=== PATIENT | male | born 1950 | race Caucasian/White ===

== ENCOUNTER 2023-02-21 14:05 | Emergency (ER) | payer MEDICARE, SELFPAY ==
[2023-02-21] VITALS (17 sets, daily range): BP systolic 111–159; BP diastolic 69–103; PULSE 51–67; RESP 19–39; TEMP 37.1; O2SAT 93–98; BMI 25.8
--- NOTE | 2023-02-21 14:30 | DI.RAD.S_ITS ---
PROCEDURE: XR CHEST 1V INDICATIONS: chest pain TECHNIQUE: One view of the chest was acquired. COMPARISON: [facility], CR, XR CHEST 1 VIEW, 06/08/2021, 13:16. FINDINGS: Surgical changes and devices: None. Lungs and pleura: Lungs are clear. No pleural effusions or pneumothorax. Mediastinum: Mediastinal contours appear normal. Heart size is normal. Bones and chest wall: No suspicious bony lesions. Overlying soft tissues appear unremarkable. IMPRESSION: No acute pulmonary process. Dictated by: Milli Ahuja M.D. on 02/21/2023 at 15:27 Approved by: Milli Ahuja M.D. on 02/21/2023 at 15:28
[2023-02-21 14:39] LABS: Add Manual Diff / Slide Review NO; Basophils Absolute Auto 0 /uL (0-100); Basophils Percent Auto 0.1 % (0-2); Eosinophils Absolute Auto 100 /uL (0-450); Eosinophils Percent Auto 0.7 % (2-4); Hematocrit 42.5 % (41-53); Hemoglobin 14.5 g/dL (13.5-17.5); Lymphocytes Absolute Auto 1700 /uL (1100-4500); Lymphocytes Percent Auto 19.7 % (25-40); Mean Corpuscular HGB Conc 34.2 % (30-36); Mean Corpuscular Volume 84.7 fL (80-100); Monocytes Absolute Auto 700 /uL (0-900); Monocytes Percent Auto 8.2 % (3-14); Neutrophils Absolute Auto 6000 /uL (1500-7000); Neutrophils Percent Auto 71.3 % (50-75); Platelet Count 181 X10^3/uL (150-400); Red Blood Cell Count 5.02 X10^6/uL (4.5-5.9); Red Cell Distribution Width 15.8 % (11.6-14.8); White Blood Cell Count 8.4 X10^3/uL (4.5-11.0)
[2023-02-21 14:53] LABS: INR 1.5 (0.9-1.3); Prothrombin Time 17.3 SECONDS (10.1-12.7)
[2023-02-21 14:56] LABS: PTT Partial Thromboplastin Tim 35 SECONDS (26-36)
[2023-02-21 14:58] LABS: Alanine Aminotransferase 19 IU/L (<50); Albumin 3.6 g/dL (3.5-5.0); Albumin Globulin Ratio 1.3 (1.0-2.8); Alkaline Phosphatase 87 U/L (38-126); Aspartate Aminotransferase 18 IU/L (17-59); BUN Creatinine Ratio 14.1 (6-22); Bilirubin Total 0.9 mg/dL (0.2-1.3); Blood Urea Nitrogen 11 mg/dL (9-20); Calcium 9.6 mg/dL (8.4-10.2); Carbon Dioxide 26 mmol/L (22-32); Chloride 99 mmol/L (98-107); Creatine Kinase 37 U/L (55-170); Estimated Glomerular Filt Rate > 60 mL/min (>60); Globulin 2.7 g/dL (1.7-4.1); Glucose 154 mg/dL (80-110); HEMOLYSIS < 15 (0-50); Lipase 48 U/L (23-300); Magnesium 1.5 mg/dL (1.6-2.3); Potassium 4.2 mmol/L (3.4-5.1); Sodium 132 mmol/L (137-145); Total Protein 6.3 g/dL (6.3-8.2)
[2023-02-21 15:09] LABS: Troponin I < 0.012 ng/mL (0.01-0.034)
--- NOTE | 2023-02-21 18:06 | ED.SYNCOPE ---
HPI - Syncope General Chief Complaint: Syncope Stated Complaint: Near Syncope Time Seen by Provider: 02/21/23 17:56 Source: patient and EMS Mode of arrival: EMS Limitations: no limitations History of Present Illness HPI narrative: Patient 72-year-old male history of coronary artery disease multiple stents, indwelling Ferguson catheter for BPH presenting today with thought of impending doom. Sounds as though he worries about his health regularly. He woke up and normal state of affairs this morning has been doing well got up from his chair went to the kitchen felt like he might pass out but did not pass out. He says that maybe it was an anxiety attack although he is never had an anxiety attack before. No chest pain shortness of breath abdominal pain nausea or vomiting. Overall feeling better after being in the emergency department for 4-1/2 hours. According to daughter EMS reports low-grade fever. He reports chronic ongoing right leg pain which is not new. Related Data Previous Rx's Medication Instructions Recorded cephalexin 500 mg capsule 500 mg PO BID 7 days #14 caps 02/21/23 Review of Systems Review of Systems ROS Unobtainable: All systems reviewed & are unremarkable except as noted in HPI and below Patient History Social History Smoking Status: Current every day smoker Smoking Status: Current every day smoker tobacco type: cigarettes alcohol intake frequency: 0-2 drinks per day Substance Use Type: does not use Exam Initial Vital Signs Initial Vital Signs: Vital Signs Temperature 98.8 F 02/21/23 14:13 Pulse Rate 64 02/21/23 14:13 Respiratory Rate 20 02/21/23 14:13 Blood Pressure 159/82 H 02/21/23 14:13 Pulse Oximetry 97 02/21/23 14:13 Oxygen Delivery Method Room Air 02/21/23 14:13 GENERAL: Well-appearing 72-year-old male HEENT: Head atraumatic,EOMI, pupils reactive, face symmetric, moist mucous membranes CARDIOVASCULAR: Regular rate and rhythm without murmurs, rubs or gallops. RESPIRATORY: Breath sounds equal bilaterally, no wheezes rales or rhonchi. ABDOMEN: Soft, nontender. Normoactive bowel sounds all 4 quadrants. No guarding or rebound. : Ferguson catheter in place EXTREMITIES: Normal range of motion, no clubbing or edema. Neurovascularly intact NEUROLOGICAL: Alert and oriented x4. SKIN: Warm, dry, no laceration, no petechiae, no rashes or lesions. Course Orders Ordered: ED Orders 02/21/23 19:24 UA Complete [Urinalysis and Microscopic] Stat Urine Culture Stat Discontinued Medications Aspirin (Aspirin 81 Mg Chew Tab) 324 mg PO NOW ONE Stop: 02/21/23 14:31 Cefazolin Sodium (Cephalexin 250 Mg Cap Prepack) 1 bottle MISC SEEINSTR ONE Stop: 02/21/23 20:02 Last Admin: 02/21/23 20:08 Dose: 2 cap Documented By: MARIE Vital Signs Vital signs: Vital Signs - 8 hr 02/21/23 14:13 02/21/23 14:56 02/21/23 14:57 Temperature 98.8 F Pulse Rate 64 61 Respiratory Rate 20 21 Blood Pressure 159/82 H 115/72 Pulse Oximetry 97 95 Oxygen Delivery Method Room Air 02/21/23 14:57 02/21/23 15:00 02/21/23 15:00 Temperature Pulse Rate 61 59 L Respiratory Rate 22 23 Blood Pressure 153/103 H Pulse Oximetry 94 94 Oxygen Delivery Method 02/21/23 15:30 02/21/23 15:30 02/21/23 16:00 Temperature Pulse Rate 59 L 54 L Respiratory Rate 23 19 Blood Pressure 140/80 Pulse Oximetry 95 95 Oxygen Delivery Method 02/21/23 16:01 02/21/23 16:01 02/21/23 16:30 Temperature Pulse Rate 52 L Respiratory Rate 19 Blood Pressure 129/72 115/79 Pulse Oximetry 94 Oxygen Delivery Method 02/21/23 16:30 Temperature Pulse Rate 59 L Respiratory Rate 20 Blood Pressure Pulse Oximetry 96 Oxygen Delivery Method MDM - Syncope Lab Data 02/21/23 14:26 02/21/23 14:26 Labs: Lab Results 02/21/23 02/21/23 02/21/23 Range/Units 14:26 14:26 14:26 WBC 8.4 (4.5-11.0) X10^3/uL RBC 5.02 (4.5-5.9) X10^6/uL Hgb 14.5 (13.5-17.5) g/dL Hct 42.5 (41-53) % MCV 84.7 (80-100) fL MCH 29.0 (26-34) PG MCHC 34.2 (30-36) % RDW 15.8 H (11.6-14.8) % Plt Count 181 (150-400) X10^3/uL Neut % (Auto) 71.3 (50-75) % Lymph % (Auto) 19.7 L (25-40) % [place] % (Auto) 8.2 (3-14) % Eos % (Auto) 0.7 L (2-4) % Baso % (Auto) 0.1 (0-2) % Neut # (Auto) 6000 (3473-5939) /uL Lymph # (Auto) 1700 (2922-6396) /uL [place] # (Auto) 700 (0-900) /uL Eos # (Auto) 100 (0-450) /uL Baso # (Auto) 0 (0-100) /uL PT 17.3 H (10.1-12.7) SECONDS INR 1.5 H (0.9-1.3) APTT 35 (26-36) SECONDS Sodium 132 L (137-145) mmol/L Potassium 4.2 (3.4-5.1) mmol/L Chloride 99 (98-107) mmol/L Carbon Dioxide 26 (22-32) mmol/L BUN 11 (9-20) mg/dL Creatinine 0.78 (0.66-1.25) mg/dL Estimated GFR > 60 (>60) mL/min BUN/Creatinine Ratio 14.1 (6-22) Glucose 154 H (80-110) mg/dL Calcium 9.6 (8.4-10.2) mg/dL Magnesium 1.5 L (1.6-2.3) mg/dL Total Bilirubin 0.9 (0.2-1.3) mg/dL AST 18 (17-59) IU/L ALT 19 (<50) IU/L Alkaline Phosphatase 87 (38-126) U/L Total Creatine Kinase 37 L (55-170) U/L CK-MB (CK-2) TNP CK-MB (CK-2) Rel Index TNP Troponin I < 0.012 (0.01-0.034) ng/mL Total Protein 6.3 (6.3-8.2) g/dL Albumin 3.6 (3.5-5.0) g/dL Globulin 2.7 (1.7-4.1) g/dL Albumin/Globulin Ratio 1.3 (1.0-2.8) Lipase 48 (23-300) U/L Urine Color Urine Appearance Urine pH (4.5-8.0) Ur Specific [place] (1.000-1.035) Urine Protein (Negative) Urine Glucose (UA) (Negative) g/dL Urine Ketones (NEGATIVE) Urine Occult Blood (Negative) Urine Nitrate (Negative) Urine Bilirubin (NEGATIVE) Urine Urobilinogen (0.2) E.U./dL Ur Leukocyte Esterase (NEGATIVE) Urine RBC (0-5/HPF) Urine WBC (0-5/HPF) Urine Bacteria (None) Ur Culture Indicated? 02/21/23 02/21/23 Range/Units 18:45 19:24 WBC (4.5-11.0) X10^3/uL RBC (4.5-5.9) X10^6/uL Hgb (13.5-17.5) g/dL Hct (41-53) % MCV (80-100) fL MCH (26-34) PG MCHC (30-36) % RDW (11.6-14.8) % Plt Count (150-400) X10^3/uL Neut % (Auto) (50-75) % Lymph % (Auto) (25-40) % [place] % (Auto) (3-14) % Eos % (Auto) (2-4) % Baso % (Auto) (0-2) % Neut # (Auto) (6826-3457) /uL Lymph # (Auto) (1037-4409) /uL [place] # (Auto) (0-900) /uL Eos # (Auto) (0-450) /uL Baso # (Auto) (0-100) /uL PT (10.1-12.7) SECONDS INR (0.9-1.3) APTT (26-36) SECONDS Sodium (137-145) mmol/L Potassium (3.4-5.1) mmol/L Chloride (98-107) mmol/L Carbon Dioxide (22-32) mmol/L BUN (9-20) mg/dL Creatinine (0.66-1.25) mg/dL Estimated GFR (>60) mL/min BUN/Creatinine Ratio (6-22) Glucose (80-110) mg/dL Calcium (8.4-10.2) mg/dL Magnesium (1.6-2.3) mg/dL Total Bilirubin (0.2-1.3) mg/dL AST (17-59) IU/L ALT (<50) IU/L Alkaline Phosphatase (38-126) U/L Total Creatine Kinase (55-170) U/L CK-MB (CK-2) CK-MB (CK-2) Rel Index Troponin I < 0.012 (0.01-0.034) ng/mL Total Protein (6.3-8.2) g/dL Albumin (3.5-5.0) g/dL Globulin (1.7-4.1) g/dL Albumin/Globulin Ratio (1.0-2.8) Lipase (23-300) U/L Urine Color Yellow Urine Appearance Sl cloudy Urine pH 7.0 (4.5-8.0) Ur Specific Seth 1.010 (1.000-1.035) Urine Protein Negative (Negative) Urine Glucose (UA) Negative (Negative) g/dL Urine Ketones Negative (NEGATIVE) Urine Occult Blood Trace-intact (Negative) Urine Nitrate Positive H (Negative) Urine Bilirubin Negative (NEGATIVE) Urine Urobilinogen 1.0 (0.2) E.U./dL Ur Leukocyte Esterase 3+ H (NEGATIVE) Urine RBC 0-1/hpf (0-5/HPF) Urine WBC 10-30/hpf H (0-5/HPF) Urine Bacteria Many (>30) H (None) Ur Culture Indicated? Specimen cultured Imaging Data Chest x-ray: Radiologist's Impression: PROCEDURE:? XR CHEST 1V ? INDICATIONS:? chest pain ? TECHNIQUE:? One view of the chest was acquired.? ? COMPARISON:? [facility], CR, XR CHEST 1 VIEW, 06/08/2021, 13:16. ? FINDINGS:? ? Surgical changes and devices:? None.? ? Lungs and pleura:? Lungs are clear.? No pleural effusions or pneumothorax.? ? Mediastinum:? Mediastinal contours appear normal.? Heart size is normal.? ? Bones and chest wall:? No suspicious bony lesions.? Overlying soft tissues appear unremarkable.? ? IMPRESSION:? No acute pulmonary process. ? ? Dictated by: Milli Ahuja M.D. on 02/21/2023 at 15:27 ? ? Approved by: Milli Ahuja M.D. on 02/21/2023 at 15:28 ? ECG Data Interpretation: Junctional rhythm rate 63 T-wave inversion lead [address] changes no priors to compare MDM Narrative Medical decision making narrative: Patient is a 72-year-old male history of coronary artery disease with stents presenting today with feeling of might pass out. He is 2- troponins no EKG changes, no leukocytosis, mild hyponatremia with a sodium of 132 not clinically significant other electrolytes are within normal limits no BIJU. Chest x-ray is also negative. He is found have nitrates in his urine. Normal start him on a course of antibiotics for that. Without actual chest pain or shortness of breath or signs consistent with acute coronary syndrome I think that that is unlikely. He reports that he does have anxiety he constantly worries about his health possible may have been some anxiety. At this time he has no sign of severe sepsis. The patient is overall feeling better. No reason for admission at this time. Discharge Plan Departure Patient Disposition: Home Clinical Impression: Atypical chest pain, Acute UTI Instructions: DI for Urinary Tract Infection (UTI), DI for Atypical Chest Pain Activity Restrictions/Additional Instructions: *You have been diagnosed with atypical chest pain and UTI *What to do: At this time blood work is overall reassuring it does appear that you have a bladder infection. Increase fluids. If your antibiotic needs to be changed we will call you in 2-3 days *Continue to take medications as directed Keflex 500 mg twice a day for 7 days *Follow up with your primary care provider in 2-3 days or call [phone] *Return to ER if you should have increasing confusion pain chest pain shortness of breath or any new, worsening or concerning symptoms Prescriptions: New cephalexin 500 mg capsule 500 mg PO BID 7 Days Qty: 14 0RF Referrals: Duke Mclean PA-C [Primary Care Provider] - Stand Alone Forms: Patient Portal/API
[2023-02-21 19:34] LABS: Appearance Urine UA SL CLOUDY; Bilirubin Urine UA NEGATIVE (NEGATIVE); Color Urine UA YELLOW; Glucose Urine UA NEGATIVE (Negative); Ketones Urine UA NEGATIVE (NEGATIVE); Leukocyte Esterase Urine UA 3+ (NEGATIVE); Nitrite Urine UA POSITIVE (Negative); Occult Blood Urine UA TRACE-INTACT (Negative); Protein Urine UA NEGATIVE (Negative)
[2023-02-21 19:44] LABS: Bacteria Urine Many (>30); Culture Indicated Urine Specimen Cultured; RBC Urine 0-1/HPF (0-5/HPF); WBC Urine 10-30/HPF (0-5/HPF)
[2023-02-21 19:49] LABS: Troponin I < 0.012 ng/mL (0.01-0.034)
[2023-02-21] MEDS: cephALEXin 250 MG CAP PREPACK 1 BOTTLE MISC (20:08)
== END 2023-02-21 20:22 | disposition home or self-care (01) ==
PROVIDERS: Emergency Medicine; Emergency Provider Emergency Medicine; PCP Student in an Organized Health Care Education/Training Program
DX: R07.89 Other chest pain (principal); N39.0 Urinary tract infection, site not specified; Z95.5 Presence of coronary angioplasty implant and graft
CPT/HCPCS: 71045; 80053; 81001; 82550; 83690; 83735; 84484; 85025; 85610; 85730; 87077; 87086; 87186; 93005; 99283; 99284

== ENCOUNTER 2023-03-03 00:22 | Emergency (ER) | payer MEDICARE, SELFPAY ==
[2023-03-03] VITALS (10 sets, daily range): BP systolic 159–185; BP diastolic 88–93; PULSE 50–68; RESP 16–35; TEMP 36.6; O2SAT 93–99; BMI 27.1
--- NOTE | 2023-03-03 00:45 | DI.RAD.S_ITS ---
PROCEDURE: XR CHEST 1V INDICATIONS: chest pain TECHNIQUE: One view of the chest was acquired. COMPARISON: [facility], CR, XR CHEST 1V, 02/21/2023, 15:11. FINDINGS: Surgical changes and devices: None. Lungs and pleura: Lungs are clear. No pleural effusions or pneumothorax. Mediastinum: Mediastinal contours appear normal. Heart size is normal. Bones and chest wall: No suspicious bony lesions. Overlying soft tissues appear unremarkable. IMPRESSION: Normal for age, source of current chest pain symptoms is not seen. Dictated by: Bucky Mallory M.D. on 03/03/2023 at 1:58 Approved by: Bucky Mallory M.D. on 03/03/2023 at 1:58
--- NOTE | 2023-03-03 00:45 | ED.DIZZY ---
HPI - Dizziness General Chief Complaint: Dizziness Stated Complaint: dizziness Time Seen by Provider: 03/03/23 00:38 Source: patient and EMS Mode of arrival: EMS History of Present Illness HPI Narrative: Patient is a 72-year-old male history of coronary artery disease multiple stents, indwelling Ferguson catheter for BPH seen here on February 21 diagnosed with a UTI and presents today with dizziness and weakness. He reports that he was feeling better for an initially 1st couple of days however he reports that he really isn't feeling very well. He feels dizzy and lightheaded. He continues to have this ongoing right leg pain which seems to be chronic. He is no chest pain or palpitations. When he stands up he gets very faint but has not fallen or passed out yet. No abdominal pain nausea or vomiting. Urine culture shows Enterobacter resistant to Augmentin and cefazolin. He was discharged home on Keflex it does appear that we called him. Related Data Previous Rx's Medication Instructions Recorded levofloxacin 750 mg tablet 750 mg PO DAILY 5 days #5 tabs 03/03/23 Allergies Allergy/AdvReac Type Severity Reaction Status Date / Time No Known Drug Allergies Allergy Verified 03/03/23 01:27 Review of Systems Review of Systems ROS Unobtainable: All systems reviewed & are unremarkable except as noted in HPI and below Patient History Social History Smoking Status: Current every day smoker Smoking Status: Current every day smoker tobacco type: cigarettes alcohol intake frequency: 0-2 drinks per day Substance Use Type: does not use Exam Initial Vital Signs Initial Vital Signs: Vital Signs Temperature 97.8 F 03/03/23 00:28 Pulse Rate 68 03/03/23 00:28 Respiratory Rate 18 03/03/23 00:28 Blood Pressure 161/88 H 03/03/23 00:28 Pulse Oximetry 96 03/03/23 00:28 Oxygen Delivery Method Room Air 03/03/23 00:28 GENERAL: Alert very pleasant 72-year-old male HEENT: Head atraumatic,EOMI, pupils reactive, face symmetric, moist mucous membranes CARDIOVASCULAR: Regular rate and rhythm without murmurs, rubs or gallops. RESPIRATORY: Breath sounds equal bilaterally, no wheezes rales or rhonchi. ABDOMEN: Soft, nontender. Normoactive bowel sounds all 4 quadrants. No guarding or rebound. : Ferguson catheter in place EXTREMITIES: Normal range of motion, no clubbing or edema. Neurovascularly intact NEUROLOGICAL: Alert and oriented x4.Normal gait and speech. SKIN: Warm, dry, no laceration, no petechiae, no rashes or lesions. Course Orders Ordered: ED Orders 03/03/23 EKG-12 Lead Routine 03/03/23 00:30 Complete Blood Count AUTO DIFF Stat Comprehensive Metabolic Panel Stat Lactate (Lactic Acid) Stat Lipase Stat Procalcitonin Stat Troponin & CK Cardiac Panel Stat 03/03/23 00:45 XR chest 1V Stat 03/03/23 01:14 Blood Culture Stat 03/03/23 02:19 Urinalysis and Microscopic Stat Urine Culture Stat Discontinued Medications Ceftriaxone Sodium 1,000 mg/ (Sodium Chloride) 100 mls @ 200 mls/hr IV NOW ONE Stop: 03/03/23 00:46 Last Infusion: 03/03/23 01:26 Dose: 0 mls/hr Documented By: Admin: 03/03/23 00:57 Dose: 200 mls/hr Documented By: ISMAEL Sodium Chloride (Normal Saline 0.9%) 1,000 mls @ 1,000 mls/hr IV CONT SULMA Last Infusion: 03/03/23 02:19 Dose: 0 mls/hr Documented By: Admin: 03/03/23 00:58 Dose: 1,000 mls/hr Documented By: ISMAEL Vital Signs Vital signs: Vital Signs - 8 hr 03/03/23 00:28 03/03/23 00:38 03/03/23 01:00 Temperature 97.8 F Pulse Rate 68 62 59 L Respiratory Rate 18 26 H 18 Blood Pressure 161/88 H Pulse Oximetry 96 93 95 Oxygen Delivery Method Room Air 03/03/23 01:30 03/03/23 02:00 03/03/23 02:30 Temperature Pulse Rate 52 L 53 L 50 L Respiratory Rate 16 16 23 Blood Pressure Pulse Oximetry 98 97 98 Oxygen Delivery Method 03/03/23 02:55 03/03/23 02:55 03/03/23 02:57 Temperature Pulse Rate 52 L 54 L Respiratory Rate 29 H 35 H Blood Pressure 185/92 H Pulse Oximetry 99 Oxygen Delivery Method 03/03/23 02:57 03/03/23 03:00 03/03/23 03:05 Temperature Pulse Rate 63 51 L Respiratory Rate 35 H 18 Blood Pressure 159/93 H 159/93 H Pulse Oximetry 98 Oxygen Delivery Method Room Air MDM - Dizziness Lab Data 03/03/23 00:30 03/03/23 00:30 Labs: Lab Results 03/03/23 03/03/23 03/03/23 Range/Units 00:30 00:30 00:30 WBC 8.7 (4.5-11.0) X10^3/uL RBC 5.06 (4.5-5.9) X10^6/uL Hgb 14.7 (13.5-17.5) g/dL Hct 42.7 (41-53) % MCV 84.3 (80-100) fL MCH 29.0 (26-34) PG MCHC 34.4 (30-36) % RDW 15.5 H (11.6-14.8) % Plt Count 187 (150-400) X10^3/uL Neut % (Auto) 58.7 (50-75) % Lymph % (Auto) 33.4 (25-40) % [place] % (Auto) 6.3 (3-14) % Eos % (Auto) 0.9 L (2-4) % Baso % (Auto) 0.7 (0-2) % Neut # (Auto) 5100 (2217-3179) /uL Lymph # (Auto) 2900 (3444-5326) /uL [place] # (Auto) 500 (0-900) /uL Eos # (Auto) 100 (0-450) /uL Baso # (Auto) 100 (0-100) /uL Sodium 133 L (137-145) mmol/L Potassium 3.9 (3.4-5.1) mmol/L Chloride 101 (98-107) mmol/L Carbon Dioxide 27 (22-32) mmol/L BUN 8 L (9-20) mg/dL Creatinine 0.71 (0.66-1.25) mg/dL Estimated GFR > 60 (>60) mL/min BUN/Creatinine Ratio 11.3 (6-22) Glucose 116 H (80-110) mg/dL Lactate 0.8 (0.7-2.1) mmol/L Calcium 10.1 (8.4-10.2) mg/dL Total Bilirubin 0.5 (0.2-1.3) mg/dL AST 22 (17-59) IU/L ALT 19 (<50) IU/L Alkaline Phosphatase 83 (38-126) U/L Total Creatine Kinase 66 (55-170) U/L CK-MB (CK-2) TNP CK-MB (CK-2) Rel Index TNP Troponin I < 0.012 (0.01-0.034) ng/mL Total Protein 6.4 (6.3-8.2) g/dL Albumin 3.7 (3.5-5.0) g/dL Globulin 2.7 (1.7-4.1) g/dL Albumin/Globulin Ratio 1.4 (1.0-2.8) Lipase 48 (23-300) U/L Procalcitonin 0.04 (<0.5) ng/mL Urine Color Urine Appearance Urine pH (4.5-8.0) Ur Specific [place] (1.000-1.035) Urine Protein (Negative) Urine Glucose (UA) (Negative) g/dL Urine Ketones (NEGATIVE) Urine Occult Blood (Negative) Urine Nitrate (Negative) Urine Bilirubin (NEGATIVE) Urine Urobilinogen (0.2) E.U./dL Ur Leukocyte Esterase (NEGATIVE) Urine RBC (0-5/HPF) Urine WBC (0-5/HPF) Urine Bacteria (None) Ur Culture Indicated? 03/03/23 Range/Units 02:19 WBC (4.5-11.0) X10^3/uL RBC (4.5-5.9) X10^6/uL Hgb (13.5-17.5) g/dL Hct (41-53) % MCV (80-100) fL MCH (26-34) PG MCHC (30-36) % RDW (11.6-14.8) % Plt Count (150-400) X10^3/uL Neut % (Auto) (50-75) % Lymph % (Auto) (25-40) % [place] % (Auto) (3-14) % Eos % (Auto) (2-4) % Baso % (Auto) (0-2) % Neut # (Auto) (4064-4859) /uL Lymph # (Auto) (3989-4233) /uL [place] # (Auto) (0-900) /uL Eos # (Auto) (0-450) /uL Baso # (Auto) (0-100) /uL Sodium (137-145) mmol/L Potassium (3.4-5.1) mmol/L Chloride (98-107) mmol/L Carbon Dioxide (22-32) mmol/L BUN (9-20) mg/dL Creatinine (0.66-1.25) mg/dL Estimated GFR (>60) mL/min BUN/Creatinine Ratio (6-22) Glucose (80-110) mg/dL Lactate (0.7-2.1) mmol/L Calcium (8.4-10.2) mg/dL Total Bilirubin (0.2-1.3) mg/dL AST (17-59) IU/L ALT (<50) IU/L Alkaline Phosphatase (38-126) U/L Total Creatine Kinase (55-170) U/L CK-MB (CK-2) CK-MB (CK-2) Rel Index Troponin I (0.01-0.034) ng/mL Total Protein (6.3-8.2) g/dL Albumin (3.5-5.0) g/dL Globulin (1.7-4.1) g/dL Albumin/Globulin Ratio (1.0-2.8) Lipase (23-300) U/L Procalcitonin (<0.5) ng/mL Urine Color Yellow Urine Appearance Clear Urine pH 6.0 (4.5-8.0) Ur Specific [place] <=1.005 (1.000-1.035) Urine Protein Negative (Negative) Urine Glucose (UA) Negative (Negative) g/dL Urine Ketones Negative (NEGATIVE) Urine Occult Blood Negative (Negative) Urine Nitrate Negative (Negative) Urine Bilirubin Negative (NEGATIVE) Urine Urobilinogen 0.2 (0.2) E.U./dL Ur Leukocyte Esterase 2+ H (NEGATIVE) Urine RBC None seen (0-5/HPF) Urine WBC 0-1/hpf (0-5/HPF) Urine Bacteria Many (>30) H (None) Ur Culture Indicated? Specimen cultured Imaging Data Chest x-ray: Radiologist's Impression: PROCEDURE:? XR CHEST 1V ? INDICATIONS:? chest pain ? TECHNIQUE:? One view of the chest was acquired.? ? COMPARISON:? [facility], CR, XR CHEST 1V, 02/21/2023, 15:11. ? FINDINGS:? ? Surgical changes and devices:? None.? ? Lungs and pleura:? Lungs are clear.? No pleural effusions or pneumothorax.? ? Mediastinum:? Mediastinal contours appear normal.? Heart size is normal.? ? Bones and chest wall:? No suspicious bony lesions.? Overlying soft tissues appear unremarkable.? ? IMPRESSION:? Normal for age, source of current chest pain symptoms is not seen. ? ? Dictated by: Bucky Mallory M.D. on 03/03/2023 at 1:58 ? ? ECG Data Interpretation: Sinus rhythm rate 70 AR interval 194 QRS 12 QTC 438 T-wave inversion in lead 3 and AVF similar to previous EKG [address] elevation or depressions MDM Narrative Medical decision making narrative: Patient is 72-year-old male history of CAD, indwelling Ferguson catheter for BPH with recent UTI presenting today with dizziness and lightheadedness. He has a persistent UTI with leukocytosis and to but no evidence of severe sepsis. No elevated lactate procalcitonin, with stable vitals. He is given a Liter of fluids. He is no evidence of acute dehydration or significant electrolyte abnormality. Sodium is 133 was previously 132 which is stable. He has no focal deficits missile inspector strength are is equal. He has not passed out or hit his head. Family at bedside. Awake alert and oriented. He is appropriate with no need for admission. Will change up his antibiotic. 1. Enterobacter aerogenes M.I.C. RX --------- --- * Amoxicillin/Clavulanate >=32 R * Cefazolin >=64 R * Cefepime <=1 S * Ceftazidime <=1 S * Ceftriaxone <=1 S * Ciprofloxacin <=0.25 S * Ertapenem <=0.5 S * Gentamicin <=1 S * Imipenem <=0.25 S * Levofloxacin <=0.12 S * Nitrofurantoin 32 S * Tobramycin <=1 S * Trimethoprim/Sulfamethoxazole <=20 S * Piperacillin/Tazobactam <=4 S Discharge Plan Departure Patient Disposition: Home Clinical Impression: Acute UTI, Dehydration Instructions: DI for Urinary Tract Infection (UTI) Activity Restrictions/Additional Instructions: *You have been diagnosed with UTI, mild dehydration *What to do: At this time blood work actually looks good. He still have a minor bladder infection. Please call the emergency department in 2-3 days to make sure you are on the correct antibiotic. *Continue to take medications as directed Levaquin 750 mg once a day for 5 days *Follow up with your primary care provider in 2-3 days or call [phone] *Return to ER if you should have increasing dizziness lightheadedness passing out 10 fusion or any new, worsening or concerning symptoms Prescriptions: New levofloxacin 750 mg tablet 750 mg PO DAILY 5 Days Qty: 5 0RF Referrals: Duke Mclean PA-C [Primary Care Provider] - Stand Alone Forms: Patient Portal/API
[2023-03-03] MEDS: cefTRIAXone 1,000 MG in SODIUM CHLORIDE 0.9% 100 ML 200 MG IV (00:57)
[2023-03-03] MEDS: SODIUM CHLORIDE 0.9% 1,000 ML 1000 ML IV (00:58)
[2023-03-03 01:03] LABS: Add Manual Diff / Slide Review NO; Basophils Absolute Auto 100 /uL (0-100); Basophils Percent Auto 0.7 % (0-2); Eosinophils Absolute Auto 100 /uL (0-450); Eosinophils Percent Auto 0.9 % (2-4); Hematocrit 42.7 % (41-53); Hemoglobin 14.7 g/dL (13.5-17.5); Lymphocytes Absolute Auto 2900 /uL (1100-4500); Lymphocytes Percent Auto 33.4 % (25-40); Mean Corpuscular HGB Conc 34.4 % (30-36); Mean Corpuscular Volume 84.3 fL (80-100); Monocytes Absolute Auto 500 /uL (0-900); Monocytes Percent Auto 6.3 % (3-14); Neutrophils Absolute Auto 5100 /uL (1500-7000); Neutrophils Percent Auto 58.7 % (50-75); Platelet Count 187 X10^3/uL (150-400); Red Blood Cell Count 5.06 X10^6/uL (4.5-5.9); Red Cell Distribution Width 15.5 % (11.6-14.8); White Blood Cell Count 8.7 X10^3/uL (4.5-11.0)
[2023-03-03 01:08] LABS: Lactate (Lactic Acid) 0.8 mmol/L (0.7-2.1)
[2023-03-03 01:09] LABS: Alanine Aminotransferase 19 IU/L (<50); Albumin 3.7 g/dL (3.5-5.0); Albumin Globulin Ratio 1.4 (1.0-2.8); Alkaline Phosphatase 83 U/L (38-126); Aspartate Aminotransferase 22 IU/L (17-59); BUN Creatinine Ratio 11.3 (6-22); Bilirubin Total 0.5 mg/dL (0.2-1.3); Blood Urea Nitrogen 8 mg/dL (9-20); Calcium 10.1 mg/dL (8.4-10.2); Carbon Dioxide 27 mmol/L (22-32); Chloride 101 mmol/L (98-107); Creatine Kinase 66 U/L (55-170); Estimated Glomerular Filt Rate > 60 mL/min (>60); Globulin 2.7 g/dL (1.7-4.1); Glucose 116 mg/dL (80-110); HEMOLYSIS 26 (0-50); Lipase 48 U/L (23-300); Potassium 3.9 mmol/L (3.4-5.1); Sodium 133 mmol/L (137-145); Total Protein 6.4 g/dL (6.3-8.2)
[2023-03-03 01:20] LABS: Troponin I < 0.012 ng/mL (0.01-0.034)
[2023-03-03 01:25] LABS: Procalcitonin 0.04 ng/mL (<0.5)
[2023-03-03 02:23] LABS: Appearance Urine UA CLEAR; Bilirubin Urine UA NEGATIVE (NEGATIVE); Color Urine UA YELLOW; Glucose Urine UA NEGATIVE (Negative); Ketones Urine UA NEGATIVE (NEGATIVE); Leukocyte Esterase Urine UA 2+ (NEGATIVE); Nitrite Urine UA NEGATIVE (Negative); Occult Blood Urine UA NEGATIVE (Negative); Protein Urine UA NEGATIVE (Negative); Specific Gravity Urine UA <=1.005 (1.000-1.035); Urobilinogen Urine UA 0.2 E.U./dL (0.2)
[2023-03-03 02:37] LABS: Bacteria Urine Many (>30); Culture Indicated Urine Specimen Cultured; RBC Urine None Seen (0-5/HPF); WBC Urine 0-1/HPF (0-5/HPF)
== END 2023-03-03 03:05 | disposition home or self-care (01) ==
PROVIDERS: Emergency Provider Emergency Medicine; PCP Student in an Organized Health Care Education/Training Program
DX: N39.0 Urinary tract infection, site not specified (principal); E86.0 Dehydration; R07.9 Chest pain, unspecified
CPT/HCPCS: 36415; 71045; 80053; 81001; 82550; 83605; 83690; 84145; 84484; 85025; 87040; 87077; 87086; 87186; 93005; 93010; 96365; 99284; J0696

== ENCOUNTER 2023-04-10 08:20 | Emergency (ER) | payer MEDICARE, SELFPAY ==
[2023-04-10 08:24] VITALS: BP 158/88; PULSE 83; RESP 20; TEMP 36.6; O2SAT 94; BMI 26.1
--- NOTE | 2023-04-10 08:37 | DI.CT.S_ITS ---
PROCEDURE: CT HEAD/BRAIN WO CON INDICATIONS: Fall on thinners TECHNIQUE: Noncontrast 4.5 mm thick angled axial sections acquired from the foramen magnum to the vertex, with coronal and sagittal reformats. For radiation dose reduction, the following was used: automated exposure control, adjustment of mA and/or kV according to patient size. COMPARISON: None. FINDINGS: Image quality: Excellent. CSF spaces: Basal cisterns are patent. No extra-axial fluid collections. The ventricles are symmetric in size and shape. Brain: No intracranial bleeds or masses. There is cerebral volume loss for age, with resultant ventricular and sulcal prominence. There are periventricular and deep white matter chronic small vessel ischemic changes. There is intracranial internal carotid artery atherosclerosis. Skull and face: Calvarium and visualized facial bones appear intact, without suspicious lesions. Sinuses: Visualized sinuses and mastoids are clear. IMPRESSION: No acute intracranial process Dictated by: Luis Gavin M.D. on 04/10/2023 at 8:51 Approved by: Luis Gavin M.D. on 04/10/2023 at 8:55
--- NOTE | 2023-04-10 08:37 | DI.RAD.S_ITS ---
PROCEDURE: XR LUMBAR SPINE 2-3V INDICATIONS: Fall with low back pain TECHNIQUE: 3 views of the lumbar spine were acquired. COMPARISON: None. FINDINGS: Bones: 5 [id number] vertebrae are present. There is normal bony alignment. Multiple levels of vertebral body height loss. Mild to moderate, multilevel degenerative disc disease and facet arthrosis at L3 through S1. Soft tissues: Overlying bowel gas pattern is normal. No suspicious soft tissue calcifications. IMPRESSION: Multiple levels of mild vertebral body height loss, without cortical step-off to suggests an acute compression deformity. Multilevel degenerative disc disease and facet arthrosis. Dictated by: Jorge Hansen M.D. on 04/10/2023 at 9:08 Approved by: Jorge Hansen M.D. on 04/10/2023 at 9:10
--- NOTE | 2023-04-10 08:37 | DI.RAD.S_ITS ---
PROCEDURE: XR HAND RT MIN 3V INDICATIONS: Right middle finger pain TECHNIQUE: 3 views of the hand(s) acquired. COMPARISON: None. FINDINGS: Bones: No fractures or dislocations. Carpal bones are normally aligned. No suspicious bony lesions. Soft tissues: No suspicious soft tissue calcifications. IMPRESSION: No acute bony abnormality. Dictated by: Jorge Hansen M.D. on 04/10/2023 at 9:10 Approved by: Jorge Hansen M.D. on 04/10/2023 at 9:11
--- NOTE | 2023-04-10 08:37 | ED_ITS ---
HPI - Fall General Chief Complaint: Fall Stated Complaint: Fall, on Eliquis Time Seen by Provider: 04/10/23 08:23 Source: patient and EMS Mode of arrival: EMS Limitations: no limitations History of Present Illness HPI Narrative: Patient is a 72-year-old male who is brought into the emergency department by EMS for evaluation of a fall. Somewhat confusing as to the exact timeline of the fall. Patient states that he was trying to get into bed when he became very lightheaded. He was not having palpitations or shortness of breath. He did fall. He landed on his lower back. He did bump his head against the wall but had no loss of consciousness. He is on anticoagulation. He does have lower extremity weakness and pain but this is not new. He is chronic low back pain. He also states that he has hurt a finger on his right hand. He is no neck pain. He was not on a backboard and not in a cervical collar upon arrival. Patient states that he thinks that he got lightheaded because he took extra medications on accident which caused him to be lightheaded. Related Data Previous Rx's Medication Instructions Recorded tramadol 50 mg tablet 25 mg PO Q8H PRN pain #10 tabs 04/10/23 Allergies Allergy/AdvReac Type Severity Reaction Status Date / Time No Known Drug Allergies Allergy Verified 03/03/23 01:27 Review of Systems Constitutional Constitutional: Reports system reviewed and no additional complaints, except as documented ENT Ears, Nose, Mouth, and Throat: Reports system reviewed and no additional complaints, except as documented Cardiovascular Cardiovascular: Reports system reviewed and no additional complaints, except as documented Respiratory Respiratory: Reports system reviewed and no additional complaints, except as documented Musculoskeletal Musculoskeletal: Reports system reviewed and no additional complaints, except as documented Integumentary/Breasts Skin/Breast: Reports system reviewed and no additional complaints, except as documented Neurologic Neurologic: Reports system reviewed and no additional complaints, except as documented Hematologic/Lymphatic On Anticoagulants: Yes Patient History Social History Smoking Status: Current every day smoker Smoking Status: Current every day smoker tobacco type: cigarettes alcohol intake frequency: 0-2 drinks per day Substance Use Type: does not use Exam Initial Vital Signs Initial Vital Signs: Vital Signs Temperature 98 F 04/10/23 08:24 Pulse Rate 83 04/10/23 08:24 Respiratory Rate 20 04/10/23 08:24 Blood Pressure 158/88 H 04/10/23 08:24 Pulse Oximetry 94 04/10/23 08:24 Oxygen Delivery Method Room Air 04/10/23 08:24 Const General: cooperative, comfortable and No ill appearing HENMT Head: normal to inspection and normocephalic Face and sinus: normal facial exam Chest Chest: No crepitus and No tenderness Resp Effort & Inspection: normal respiratory effort Auscultation: clear to auscultation bilaterally Cardio Rate: regular rate Rhythm: regular rhythm GI Inspection: normal to inspection Back/Spine/Pelvis Cervical Spine: No cervical spinal tenderness Thoracic/Lumbar Spine: paraspinal tenderness and lumbar spinal tenderness Neuro General: patient alert, patient awake, patient oriented x3 and moves all extremities Cognition: normal cognition Speech: speech normal Extrem General: No edema Other: Discomfort with palpation of right middle finger. Pelvis is stable. Patient is able to lift his legs off the bed. No upper extremity deformities or discomfort Scores Nexus Score for C-Spine Focal Neurologic deficit present: No Midline spinal tenderness present: No Altered level of conciousness present: No Intoxication present: No Distracting Injury Present: No Nexus Criteria for C-spine: 0 Course Orders Ordered: ED Orders 04/10/23 08:37 CT head/brain wo con Stat XR hand RT min 3V Stat XR lumbar spine 2-3V Stat Vital Signs Vital signs: Vital Signs - 8 hr 04/10/23 08:24 04/10/23 08:59 04/10/23 09:00 Temperature 98 F Pulse Rate 83 70 70 Respiratory Rate 20 15 18 Blood Pressure 158/88 H Pulse Oximetry 94 95 96 Oxygen Delivery Method Room Air Room Air MDM - Fall Imaging Data CT scan - head: Radiologist's Impression: PROCEDURE:? CT HEAD/BRAIN WO CON ? INDICATIONS:? Fall on thinners ? TECHNIQUE:? Noncontrast 4.5 mm thick angled axial sections acquired from the foramen magnum to the vertex, with coronal and sagittal reformats.? For radiation dose reduction, the following was used:? automated exposure control, adjustment of mA and/or kV according to patient size.? ? COMPARISON:? None. ? FINDINGS:? Image quality:? Excellent.? ? CSF spaces:? Basal cisterns are patent.? No extra-axial fluid collections.? The ventricles are symmetric in size and shape.? ? Brain:? No intracranial bleeds or masses.? There is cerebral volume loss for age, with resultant ventricular and sulcal prominence.? There are periventricular and deep white matter chronic small vessel ischemic changes.? There is intracranial internal carotid artery atherosclerosis.? ? Skull and face:? Calvarium and visualized facial bones appear intact, without suspicious lesions.? ? Sinuses:? Visualized sinuses and mastoids are clear.? ? IMPRESSION:? No acute intracranial process lumbar x-ray: Radiologist's Impression: PROCEDURE:? XR LUMBAR SPINE 2-3V ? INDICATIONS:? Fall with low back pain ? TECHNIQUE:? 3 views of the lumbar spine were acquired.? ? COMPARISON:? None. ? FINDINGS:? ? Bones:? 5 [id number] vertebrae are present.? There is normal bony alignment.? Multiple levels of vertebral body height loss.? Mild to moderate, multilevel degenerative disc disease and facet arthrosis at L3 through S1. ? Soft tissues:? Overlying bowel gas pattern is normal.? No suspicious soft tissue calcifications.? ? ? IMPRESSION:? Multiple levels of mild vertebral body height loss, without cortical step-off to suggests an acute compression deformity. ? Multilevel degenerative disc disease and facet arthrosis.? Extremity x-ray #1: Radiologist's Impression: PROCEDURE:? XR HAND RT MIN 3V ? INDICATIONS:? Right middle finger pain ? TECHNIQUE:? 3 views of the hand(s) acquired.? ? COMPARISON:? None. ? FINDINGS:? ? Bones:? No fractures or dislocations.? Carpal bones are normally aligned.? No suspicious bony lesions.? ? Soft tissues:? No suspicious soft tissue calcifications.? ? ? IMPRESSION:? No acute bony abnormality. [facility] Narrative Medical decision making narrative: Patient was just recently started on gabapentin. He has been on amitriptyline. This was started by his orthopedic surgeon. It was early this morning when he took these 2 medications together and it was shortly afterwards when he became lightheaded. Patient also has tramadol at home but he states he did not take that this morning. The x-ray show no acute injuries. His back discomfort is the same discomfort that he has been having in his just worse. There are no new findings on the x-rays. Will discharge patient home with return precautions. He expressed understanding and agreement with plan. Discharge Plan Departure Patient Disposition: Home Clinical Impression: Fall, Lower back pain Instructions: How to Prevent Falls Activity Restrictions/Additional Instructions: I do recommend that you continue to take all of your medications as directed. Be sure that you are careful because the medications that you take can make you drowsy. Keep all of your scheduled medical appointments. Return to the emergency department for new or worsening symptoms. Prescriptions: New tramadol 50 mg tablet 25 mg PO Q8H PRN (Reason: pain) Qty: 10 0RF Referrals: Duke Mclean PA-C [Primary Care Provider] - Stand Alone Forms: Patient Portal/API
[2023-04-10 08:59] VITALS: PULSE 70; RESP 15; O2SAT 95
[2023-04-10 09:00] VITALS: PULSE 70; RESP 18; O2SAT 96
[2023-04-10 09:30] VITALS: PULSE 71; O2SAT 96
[2023-04-10 09:42] VITALS: BP 136/70; PULSE 55; RESP 26; O2SAT 96
== END 2023-04-10 09:45 | disposition home or self-care (01) ==
PROVIDERS: Emergency Provider Emergency Medicine; PCP Student in an Organized Health Care Education/Training Program
DX: M54.50 Low back pain, unspecified (principal); M79.644 Pain in right finger(s); S09.90XA Unspecified injury of head, initial encounter; W18.30XA Fall on same level, unspecified, initial encounter
CPT/HCPCS: 70450; 72100; 73130; 99284

== ENCOUNTER 2023-04-11 13:05 | Observation (INO) | payer MEDICARE, SELFPAY ==
[2023-04-11] VITALS (13 sets, daily range): BP systolic 132–174; BP diastolic 80–96; PULSE 56–78; RESP 15–23; TEMP 36.8–37.3; O2SAT 94–97; BMI 25.7; BMI 24.8
--- NOTE | 2023-04-11 13:15 | DI.CT.S_ITS ---
PROCEDURE: CT STROKE INDICATIONS: fall on eliquis with confusion TECHNIQUE: Noncontrast 4.5 mm thick angled axial sections acquired from the foramen magnum to the vertex, with coronal reformats. For radiation dose reduction, the following was used: automated exposure control, adjustment of mA and/or kV according to patient size. COMPARISON: None. FINDINGS: Image quality: Patient motion artifact. CSF spaces: Basal cisterns are patent. No extra-axial fluid collections. The ventricles are symmetric in size and shape. Brain: No intracranial bleeds or masses. There is cerebral volume loss for age, with resultant ventricular and sulcal prominence. There are periventricular and deep white matter chronic small vessel ischemic changes. There is intracranial internal carotid artery atherosclerosis. Skull and face: Calvarium and visualized facial bones appear intact, without suspicious lesions. Sinuses: Visualized sinuses and mastoids are clear. IMPRESSION: Image is somewhat compromised by patient motion artifact. No acute intracranial process noted. Comment: Findings were discussed with Dr. Savage on 04.11.23 at 13:39 hrs This study fulfills neurological imaging criteria for inclusion or exclusion of acute stroke therapies based on available published neurological guidelines. Dictated by: Luis Gavin M.D. on 04/11/2023 at 13:36 Approved by: Luis Gavin M.D. on 04/11/2023 at 13:40
--- NOTE | 2023-04-11 13:16 | DI.CT.S_ITS ---
PROCEDURE: CT ANGIO HEAD AND NECK INDICATIONS: confusion resolved TECHNIQUE: After the administration of intravenous contrast, 1 mm thick sections acquired from the aortic arch through the [place] of [place]. Post-contrast 4.5 mm thick sections then re-acquired from the foramen magnum to the vertex. 3-dimensional eyfzyqk-jnzsbrwmt-hdhopvazcq (MIP) and/or volume rendering reformats were acquired of the central intracranial vasculature and neck separately. For radiation dose reduction, the following was used: automated exposure control, adjustment of mA and/or kV according to patient size. COMPARISON: [facility], CT, CT STROKE, 04/11/2023, 13:22. FINDINGS: Image quality: Excellent. BRAIN: CSF spaces: Ventricles are normal in size and shape. Basal cisterns are patent. No extra-axial fluid collections. Brain: No midline shift. No intracranial bleeds or masses. [place]-white matter interface appears intact. Old lacunar infarct is noted in left basal ganglia. Age related volume loss and extensive periventricular and deep white matter chronic small vessel ischemic changes are seen. No area of abnormal intracranial enhancement is noted. Skull and face: Calvarium and facial bones appear intact, without suspicious lesions. Orbits appear normal. Sinuses: Sinuses and mastoids are clear. HEAD CT ANGIOGRAPHY: Anterior circulation: Intracranial internal carotid arteries are normal in size and flow. Etiy-hj-jskkwqqa amount of atherosclerotic calcifications are noted in distal intracranial portion of internal carotid arteries without hemodynamically significant stenosis. The flow within the paired anterior cerebral arteries is normal and symmetric. The flow within the middle cerebral arteries is normal and symmetric. The anterior communicating artery is seen. No aneurysms are seen. Posterior circulation: Visualized portions of the vertebral arteries demonstrate normal caliber, and join to form a normal appearing basilar artery. Flow within the posterior cerebral arteries is normal and symmetric. No aneurysms are seen. NECK CT ANGIOGRAPHY: Carotid system: The great vessels demonstrate a conventional anatomy as they arise from the aortic arch. The origins of the common carotid arteries appear patent. The common carotid arteries demonstrate normal caliber and courses. The bifurcation regions are both widely patent. The internal carotid arteries demonstrate normal calibers and courses. Posterior circulation: The origins of the vertebral arteries both appear widely patent. The more superior extracranial portions of both vertebral arteries also demonstrate normal courses and calibers. They join to form a normal appearing basilar artery. Soft tissues: Visualized neck soft tissues demonstrate no suspicious abnormalities. Bones: No suspicious bony lesions. Visualized cervical spine appears normally aligned. IMPRESSION: 1. No CT evidence of acute intracranial abnormalities. No area of abnormal intracranial enhancement. 2. Atherosclerotic disease in distal intracranial portion of bilateral internal carotid arteries without hemodynamically significant stenosis. 3. No hemodynamically significant stenosis or aneurysm is seen in the intracranial circulation. 4. No hemodynamically significant stenosis or aneurysm is seen in bilateral neck arteries. Any quantitative measurements of stenosis were performed using NASCET criteria. Dictated by: Jose Fisher M.D. on 04/11/2023 at 14:24 Approved by: Jose Fisher M.D. on 04/11/2023 at 14:29
--- NOTE | 2023-04-11 13:20 | DI.RAD.S_ITS ---
PROCEDURE: XR CHEST 1V INDICATIONS: chest pain TECHNIQUE: One view of the chest was acquired. COMPARISON: [facility], CR, XR CHEST 1V, 03/03/2023, 1:17. FINDINGS: Surgical changes and devices: None. Lungs and pleura: Lungs are clear. No pleural effusions or pneumothorax. Mediastinum: Mediastinal contours appear normal. Heart size is normal. Bones and chest wall: No suspicious bony lesions. Overlying soft tissues appear unremarkable. IMPRESSION: No acute cardiopulmonary pathology. Dictated by: Jose Fisher M.D. on 04/11/2023 at 14:22 Approved by: Jose Fisher M.D. on 04/11/2023 at 14:23
[2023-04-11 13:27] LABS: Add Manual Diff / Slide Review NO; Basophils Absolute Auto 100 /uL (0-100); Basophils Percent Auto 0.9 % (0-2); Eosinophils Absolute Auto 0 /uL (0-450); Eosinophils Percent Auto 0.2 % (2-4); Hematocrit 43.3 % (41-53); Hemoglobin 14.8 g/dL (13.5-17.5); Lymphocytes Absolute Auto 1000 /uL (1100-4500); Lymphocytes Percent Auto 10.5 % (25-40); Mean Corpuscular HGB Conc 34.2 % (30-36); Mean Corpuscular Hemoglobin 29.2 PG (26-34); Mean Corpuscular Volume 85.4 fL (80-100); Monocytes Absolute Auto 500 /uL (0-900); Monocytes Percent Auto 5.1 % (3-14); Neutrophils Absolute Auto 7600 /uL (1500-7000); Neutrophils Percent Auto 83.3 % (50-75); Platelet Count 176 X10^3/uL (150-400); Red Blood Cell Count 5.08 X10^6/uL (4.5-5.9); Red Cell Distribution Width 15.4 % (11.6-14.8); White Blood Cell Count 9.1 X10^3/uL (4.5-11.0)
[2023-04-11] MEDS: SODIUM CHLORIDE 0.9% 1,000 ML 150 ML IV ×2 (13:32→22:14)
[2023-04-11 13:34] LABS: INR 1.5 (0.9-1.3); Prothrombin Time 17.4 SECONDS (10.1-12.7)
--- NOTE | 2023-04-11 13:34 | ED_ITS ---
HPI - Neuro Symptoms/Deficit General Chief Complaint: Neuro Symptoms/Deficit Stated Complaint: Trouble concentrating, Pain, Trouble speaking Time Seen by Provider: 04/11/23 13:15 Source: patient and family Mode of arrival: Wheelchair History of Present Illness HPI Narrative: Patient is a 72-year-old male history of coronary artery disease multiple stents, indwelling Ferguson catheter for BPH presenting today with confusion he has had frequent UTIs. He was seen evaluated here yesterday after a fall. He apparently was trying to get into bed when he got very lightheaded and fell backwards. He is on Eliquis. Today he was in the car with his family driving to get his catheter changed when they said that he be started speaking benedicto h. They were not able to understand him. Symptoms lasted for almost an hour. Now in the ED he is slightly confused on the month otherwise has no other deficits. On Anticoagulants: Yes (eliquis) Related Data Home Medications Medication Instructions Recorded Confirmed amitriptyline 100 mg tablet 100 mg PO BEDTIME 04/11/23 04/11/23 apixaban 5 mg tablet (Eliquis) 5 mg PO DAILY 04/11/23 04/11/23 atorvastatin 40 mg tablet 40 mg PO DAILY 04/11/23 04/11/23 enalapril maleate 10 mg tablet 10 mg PO DAILY 04/11/23 04/11/23 finasteride 5 mg tablet 5 mg PO DAILY 04/11/23 04/11/23 metformin 500 mg tablet 500 mg PO DAILY 04/11/23 04/11/23 metoprolol tartrate 25 mg tablet 25 mg PO DAILY 04/11/23 04/11/23 omeprazole 20 mg capsule,delayed 20 mg PO DAILY 04/11/23 04/11/23 release tamsulosin 0.4 mg capsule 0.4 mg PO DAILY 04/11/23 04/11/23 tramadol 50 mg tablet 50 mg PO Q8HR PRN Pain (Scale 04/11/23 04/11/23 Score 1-3) Allergies Allergy/AdvReac Type Severity Reaction Status Date / Time No Known Drug Allergies Allergy Verified 04/11/23 13:16 Review of Systems Review of Systems ROS Unobtainable: All systems reviewed & are unremarkable except as noted in HPI and below Hematologic/Lymphatic On Anticoagulants: Yes (eliquis) Patient History Social History household members: none Smoking Status: Current every day smoker alcohol intake: current Smoking Status: Current every day smoker tobacco type: cigarettes alcohol intake frequency: 0-2 drinks per day Substance Use Type: does not use Exam Initial Vital Signs Initial Vital Signs: Vital Signs Temperature 99.1 F 04/11/23 13:10 Pulse Rate 72 04/11/23 13:10 Respiratory Rate 15 04/11/23 13:10 Blood Pressure 172/91 H 04/11/23 13:10 Pulse Oximetry 94 04/11/23 13:10 Oxygen Delivery Method Room Air 04/11/23 13:10 GENERAL: Alert pleasant 72-year-old male and in no acute distress. HEENT: Head atraumatic,EOMI, pupils reactive, face symmetric, moist mucous membranes CARDIOVASCULAR: Regular rate and rhythm without murmurs, rubs or gallops. RESPIRATORY: Breath sounds equal bilaterally, no wheezes rales or rhonchi. ABDOMEN: Soft, nontender. Normoactive bowel sounds all 4 quadrants. No guarding or rebound. : Ferguson catheter in place EXTREMITIES: Normal range of motion, no clubbing or edema. Neurovascularly intact NEUROLOGICAL: Alert and oriented x3.Normal gait and speech. Cranial nerves II through XII grossly intact. Good eknyru-iz-xglr, good [id number], strength equal bilaterally, no dysarthria or aphasia, sensation in tact to soft touch bilaterally, no visual changes, no facial droop SKIN: Warm, dry, no laceration, no petechiae, no rashes or lesions. Scores NIH Stroke Scale Level of Conciousness: Alert, keenly responsive Ask month/age: Answers one question correctly, intubated follow commands Open/close eyes, close hand: Performs both tasks correctly Best gaze horizontal: Normal Visual blackmon: No visual loss Facial palsy: Normal symetrical movement Left arm drift: No drift for full 10 sec Right arm drift: No drift for full 10 sec Left leg drift: No drift for full 5 sec Right leg drift: No drift for full 5 sec Limb ataxia: Absent Sensory on face/arms/legs: Normal, no sensory loss Best language: No aphasia, normal Dysarthria: Normal Extinction or inattention: No abnormality Total NIH Stroke scale score: 1 Course Orders Ordered: ED Orders 04/11/23 13:15 CT Stroke Stat Complete Blood Count AUTO DIFF Stat Comprehensive Metabolic Panel Stat Lipase Stat PTT Partial Thromboplastin Saad Stat Procalcitonin Stat Prothrombin Time INR Stat Troponin & CK Cardiac Panel Stat 04/11/23 13:16 CT angio head and neck Stat 04/11/23 13:20 XR chest 1V Stat 04/11/23 14:51 Urinalysis and Microscopic Stat Urine Culture Stat Acetaminophen (Acetaminophen 325 Mg Tablet) 650 mg PO Q6H PRN PRN Reason: Fever/Mild Pain (1-3) Amitriptyline HCl (Amitriptyline 25 Mg Tablet) 100 mg PO BEDTIME SULMA Apixaban (Apixaban 5 Mg Tablet) 5 mg PO BID [facility] Aspirin (Aspirin Ec 81 Mg Tablet) 81 mg PO DAILY [facility] Last Admin: 04/11/23 18:41 Dose: 81 mg Documented By: CURT Atorvastatin Calcium (Atorvastatin 20 Mg Tablet) 80 mg PO DAILY [facility] Dextrose (Dextrose 50 % In Water 25 Gm/50 Ml Syringe) 25 gm IV PRN PRN PRN Reason: Hypoglycemia Finasteride (Finasteride 5 Mg Tablet) 5 mg PO DAILY [facility] Hydromorphone HCl (Hydromorphone 0.5 Mg Inj) 0.5 mg IV Q4H PRN PRN Reason: Pain, Moderate (4-6) Sodium Chloride (Normal Saline 0.9%) 1,000 mls @ 100 mls/hr IV CONT [facility] Stop: 04/12/23 01:29 Last Infusion: 04/11/23 16:27 Dose: 150 mls/hr Documented By: Infusion: 04/11/23 16:15 Dose: 0 mls/hr Documented By: Admin: 04/11/23 13:32 Dose: 150 mls/hr Documented By: MARGARET Insulin Human Lispro (Insulin Lispro 100 Unit/Ml 3ml Vial) 0 unit SUBCUT ACHS [facility]; Protocol Last Admin: 04/11/23 17:32 Dose: Not Given Documented By: CURT Labetalol HCl (Labetalol 20 Mg/4 Ml Syringe) 10 mg IV Q5MIN PRN PRN Reason: SBP >220 or DBP >110 Melatonin (Melatonin 3 Mg Tablet) 6 mg PO BEDTIME PRN PRN Reason: Insomnia Naloxone HCl (Naloxone 0.4 Mg/Ml Vial) 0.2 mg IV Q2MIN PRN PRN Reason: Opiate Reversal Oxycodone HCl (Oxycodone Ir 5 Mg Tablet) 5 mg PO Q4HR PRN PRN Reason: Pain, Moderate (4-6) Pantoprazole Sodium (Pantoprazole Dr 20 Mg Tablet) 20 mg PO 0600 [facility] Polyethylene Glycol (Polyethylene Glycol 3350 17 Gm Powd.Pack) 17 gm PO DAILY PRN PRN Reason: Constipation Sennosides (Sennosides 8.6 Mg Tablet) 8.6 mg PO BID PRN PRN Reason: Constipation Tamsulosin HCl (Tamsulosin 0.4 Mg Capsule) 0.4 mg PO DAILY [facility] Discontinued Medications Enoxaparin Sodium (Enoxaparin 40 Mg/0.4 Ml Syringe) 40 mg SUBCUT DAILY [facility] Last Admin: 04/11/23 17:54 Dose: 40 mg Documented By: CURT Vital Signs Vital signs: Vital Signs - 8 hr 04/11/23 13:10 04/11/23 14:16 04/11/23 14:18 Temperature 99.1 F Pulse Rate 72 72 71 Respiratory Rate 15 16 Blood Pressure 172/91 H Pulse Oximetry 94 96 97 Oxygen Delivery Method Room Air Room Air 04/11/23 14:19 04/11/23 13:35 04/11/23 14:00 Temperature Pulse Rate Respiratory Rate Blood Pressure 173/84 H 164/86 H 148/85 H Pulse Oximetry Oxygen Delivery Method 04/11/23 14:19 04/11/23 14:30 04/11/23 14:30 Temperature Pulse Rate 70 78 Respiratory Rate 19 Blood Pressure 140/88 Pulse Oximetry 96 95 Oxygen Delivery Method Room Air 04/11/23 14:59 04/11/23 15:00 04/11/23 15:00 Temperature Pulse Rate 60 68 Respiratory Rate 23 Blood Pressure 158/80 H Pulse Oximetry 96 96 Oxygen Delivery Method MDM - Neuro Symptoms/Deficit Lab Data 04/11/23 13:15 04/11/23 13:15 Labs: Lab Results 04/11/23 04/11/23 04/11/23 Range/Units 13:15 13:15 13:15 WBC 9.1 (4.5-11.0) X10^3/uL RBC 5.08 (4.5-5.9) X10^6/uL Hgb 14.8 (13.5-17.5) g/dL Hct 43.3 (41-53) % MCV 85.4 (80-100) fL MCH 29.2 (26-34) PG MCHC 34.2 (30-36) % RDW 15.4 H (11.6-14.8) % Plt Count 176 (150-400) X10^3/uL Neut % (Auto) 83.3 H (50-75) % Lymph % (Auto) 10.5 L (25-40) % [place] % (Auto) 5.1 (3-14) % Eos % (Auto) 0.2 L (2-4) % Baso % (Auto) 0.9 (0-2) % Neut # (Auto) 7600 H (9666-3157) /uL Lymph # (Auto) 1000 L (7948-1491) /uL [place] # (Auto) 500 (0-900) /uL Eos # (Auto) 0 (0-450) /uL Baso # (Auto) 100 (0-100) /uL PT 17.4 H (10.1-12.7) SECONDS INR 1.5 H (0.9-1.3) APTT 39 H (26-36) SECONDS Sodium (137-145) mmol/L Potassium (3.4-5.1) mmol/L Chloride (98-107) mmol/L Carbon Dioxide (22-32) mmol/L BUN (9-20) mg/dL Creatinine (0.66-1.25) mg/dL Estimated GFR (>60) mL/min BUN/Creatinine Ratio (6-22) Glucose (80-110) mg/dL Calcium (8.4-10.2) mg/dL Magnesium (1.6-2.3) mg/dL Total Bilirubin (0.2-1.3) mg/dL AST (17-59) IU/L ALT (<50) IU/L Alkaline Phosphatase (38-126) U/L Total Creatine Kinase (55-170) U/L CK-MB (CK-2) CK-MB (CK-2) Rel Index Troponin I (0.01-0.034) ng/mL Total Protein (6.3-8.2) g/dL Albumin (3.5-5.0) g/dL Globulin (1.7-4.1) g/dL Albumin/Globulin Ratio (1.0-2.8) Triglycerides (35-150) mg/dL Cholesterol (140-199) mg/dL LDL Cholesterol, Calc (<100) mg/dL HDL Cholesterol (40-60) mg/dL Lipase (23-300) U/L Procalcitonin 0.04 (<0.5) ng/mL TSH (0.47-4.68) uIU/mL Free T4 (0.78-2.19) ng/dL Urine Color Urine Appearance Urine pH (4.5-8.0) Ur Specific [place] (1.000-1.035) Urine Protein (Negative) Urine Glucose (UA) (Negative) g/dL Urine Ketones (NEGATIVE) Urine Occult Blood (Negative) Urine Nitrate (Negative) Urine Bilirubin (NEGATIVE) Urine Urobilinogen (0.2) E.U./dL Ur Leukocyte Esterase (NEGATIVE) Urine RBC (0-5/HPF) Urine WBC (0-5/HPF) Ur Squamous Epith Cells (0-5/HPF) Urine Bacteria (None) Ur Culture Indicated? 04/11/23 04/11/23 04/11/23 Range/Units 13:15 13:15 13:15 WBC (4.5-11.0) X10^3/uL RBC (4.5-5.9) X10^6/uL Hgb (13.5-17.5) g/dL Hct (41-53) % MCV (80-100) fL MCH (26-34) PG MCHC (30-36) % RDW (11.6-14.8) % Plt Count (150-400) X10^3/uL Neut % (Auto) (50-75) % Lymph % (Auto) (25-40) % [place] % (Auto) (3-14) % Eos % (Auto) (2-4) % Baso % (Auto) (0-2) % Neut # (Auto) (5910-5648) /uL Lymph # (Auto) (5634-6802) /uL [place] # (Auto) (0-900) /uL Eos # (Auto) (0-450) /uL Baso # (Auto) (0-100) /uL PT (10.1-12.7) SECONDS INR (0.9-1.3) APTT (26-36) SECONDS Sodium 133 L (137-145) mmol/L Potassium 4.2 (3.4-5.1) mmol/L Chloride 99 (98-107) mmol/L Carbon Dioxide 29 (22-32) mmol/L BUN 7 L (9-20) mg/dL Creatinine 0.65 L (0.66-1.25) mg/dL Estimated GFR > 60 (>60) mL/min BUN/Creatinine Ratio 10.8 (6-22) Glucose 134 H (80-110) mg/dL Calcium 9.2 (8.4-10.2) mg/dL Magnesium 1.8 (1.6-2.3) mg/dL Total Bilirubin 0.7 (0.2-1.3) mg/dL AST 19 (17-59) IU/L ALT 17 (<50) IU/L Alkaline Phosphatase 91 (38-126) U/L Total Creatine Kinase 41 L (55-170) U/L CK-MB (CK-2) TNP CK-MB (CK-2) Rel Index TNP Troponin I < 0.012 (0.01-0.034) ng/mL Total Protein 6.7 (6.3-8.2) g/dL Albumin 3.9 (3.5-5.0) g/dL Globulin 2.8 (1.7-4.1) g/dL Albumin/Globulin Ratio 1.4 (1.0-2.8) Triglycerides (35-150) mg/dL Cholesterol (140-199) mg/dL LDL Cholesterol, Calc (<100) mg/dL HDL Cholesterol (40-60) mg/dL Lipase 27 (23-300) U/L Procalcitonin (<0.5) ng/mL TSH < 0.02 L (0.47-4.68) uIU/mL Free T4 1.11 (0.78-2.19) ng/dL Urine Color Urine Appearance Urine pH (4.5-8.0) Ur Specific [place] (1.000-1.035) Urine Protein (Negative) Urine Glucose (UA) (Negative) g/dL Urine Ketones (NEGATIVE) Urine Occult Blood (Negative) Urine Nitrate (Negative) Urine Bilirubin (NEGATIVE) Urine Urobilinogen (0.2) E.U./dL Ur Leukocyte Esterase (NEGATIVE) Urine RBC (0-5/HPF) Urine WBC (0-5/HPF) Ur Squamous Epith Cells (0-5/HPF) Urine Bacteria (None) Ur Culture Indicated? 04/11/23 04/11/23 Range/Units 13:15 14:51 WBC (4.5-11.0) X10^3/uL RBC (4.5-5.9) X10^6/uL Hgb (13.5-17.5) g/dL Hct (41-53) % MCV (80-100) fL MCH (26-34) PG MCHC (30-36) % RDW (11.6-14.8) % Plt Count (150-400) X10^3/uL Neut % (Auto) (50-75) % Lymph % (Auto) (25-40) % [place] % (Auto) (3-14) % Eos % (Auto) (2-4) % Baso % (Auto) (0-2) % Neut # (Auto) (2404-9224) /uL Lymph # (Auto) (4566-0359) /uL [place] # (Auto) (0-900) /uL Eos # (Auto) (0-450) /uL Baso # (Auto) (0-100) /uL PT (10.1-12.7) SECONDS INR (0.9-1.3) APTT (26-36) SECONDS Sodium (137-145) mmol/L Potassium (3.4-5.1) mmol/L Chloride (98-107) mmol/L Carbon Dioxide (22-32) mmol/L BUN (9-20) mg/dL Creatinine (0.66-1.25) mg/dL Estimated GFR (>60) mL/min BUN/Creatinine Ratio (6-22) Glucose (80-110) mg/dL Calcium (8.4-10.2) mg/dL Magnesium (1.6-2.3) mg/dL Total Bilirubin (0.2-1.3) mg/dL AST (17-59) IU/L ALT (<50) IU/L Alkaline Phosphatase (38-126) U/L Total Creatine Kinase (55-170) U/L CK-MB (CK-2) CK-MB (CK-2) Rel Index Troponin I (0.01-0.034) ng/mL Total Protein (6.3-8.2) g/dL Albumin (3.5-5.0) g/dL Globulin (1.7-4.1) g/dL Albumin/Globulin Ratio (1.0-2.8) Triglycerides 48 (35-150) mg/dL Cholesterol 106 L (140-199) mg/dL LDL Cholesterol, Calc 48 (<100) mg/dL HDL Cholesterol 48 (40-60) mg/dL Lipase (23-300) U/L Procalcitonin (<0.5) ng/mL TSH (0.47-4.68) uIU/mL Free T4 (0.78-2.19) ng/dL Urine Color Yellow Urine Appearance Clear Urine pH 7.0 (4.5-8.0) Ur Specific [place] <=1.005 (1.000-1.035) Urine Protein Negative (Negative) Urine Glucose (UA) Negative (Negative) g/dL Urine Ketones Negative (NEGATIVE) Urine Occult Blood Trace-intact (Negative) Urine Nitrate Negative (Negative) Urine Bilirubin Negative (NEGATIVE) Urine Urobilinogen 0.2 (0.2) E.U./dL Ur Leukocyte Esterase 1+ H (NEGATIVE) Urine RBC 0-1/hpf (0-5/HPF) Urine WBC 1-5/hpf (0-5/HPF) Ur Squamous Epith Cells 0-1 /hpf (0-5/HPF) Urine Bacteria Few (2-10) H (None) Ur Culture Indicated? Specimen cultured Imaging Data CT scan - head: Radiologist's Impression: PROCEDURE:? CT STROKE ? INDICATIONS:? fall on eliquis with confusion ? TECHNIQUE:? Noncontrast 4.5 mm thick angled axial sections acquired from the foramen magnum to the vertex, with coronal reformats.? For radiation dose reduction, the following was used:? automated exposure control, adjustment of mA and/or kV according to patient size.? ? COMPARISON:? None. ? FINDINGS:? Image quality:? Patient motion artifact.? ? CSF spaces:? Basal cisterns are patent.? No extra-axial fluid collections.? The ventricles are symmetric in size and shape.? ? Brain:? No intracranial bleeds or masses.? There is cerebral volume loss for age, with resultant ventricular and sulcal prominence.? There are periventricular and deep white matter chronic small vessel ischemic changes.? There is intracranial internal carotid artery atherosclerosis.? ? Skull and face:? Calvarium and visualized facial bones appear intact, without suspicious lesions.? ? Sinuses:? Visualized sinuses and mastoids are clear.? ? IMPRESSION:? Image is somewhat compromised by patient motion artifact.? No acute intracranial process noted. ? Comment: Findings were discussed with Dr. Savage on? 04.11.23 at 13:39 hrs ? This study fulfills neurological imaging criteria for inclusion or exclusion of acute stroke therapies based on available published neurological guidelines.? ? ? Dictated by: Luis Gavin M.D. on 04/11/2023 at 13:36 ? ? CTA - brain/neck: Radiologist's Impression: PROCEDURE:? CT ANGIO HEAD AND NECK ? INDICATIONS:? confusion resolved ? TECHNIQUE:? After the administration of intravenous contrast, 1 mm thick sections acquired from the aortic arch through the [place].? Post-contrast 4.5 mm thick sections then re-acquired from the foramen magnum to the vertex.? 3-dimensional mxcbepu-spjyjhryb-fgmbikldog (MIP) and/or volume rendering reformats were acquired of the central intracranial vasculature and neck separately. For radiation dose reduction, the following was used:? automated exposure control, adjustment of mA and/or kV according to patient size.? ? COMPARISON:? [facility], CT, CT STROKE, 04/11/2023, 13:22. ? FINDINGS:? Image quality:? Excellent.? ? BRAIN:? CSF spaces:? Ventricles are normal in size and shape.? Basal cisterns are patent.? No extra-axial fluid collections.? ? Brain:? No midline shift.? No intracranial bleeds or masses.? [place]-white matter interface appears intact.? Old lacunar infarct is noted in left basal ganglia.? Age related volume loss and extensive periventricular and deep white matter chronic small vessel ischemic changes are seen.? No area of abnormal intracranial enhancement is noted. ? Skull and face:? Calvarium and facial bones appear intact, without suspicious lesions.? Orbits appear normal.? ? Sinuses:? Sinuses and mastoids are clear.? ? HEAD CT ANGIOGRAPHY:? Anterior circulation:? Intracranial internal carotid arteries are normal in size and flow.? [id number] amount of atherosclerotic calcifications are noted in distal intracranial portion of internal carotid arteries without hemodynamically significant stenosis.? The flow within the paired anterior cerebral arteries is normal and symmetric. ?The flow within the middle cerebral arteries is normal and symmetric.? The anterior communicating artery is seen.? No aneurysms are seen.? ? Posterior circulation:? Visualized portions of the vertebral arteries demonstrate normal caliber, and join to form a normal appearing basilar artery.? Flow within the posterior cerebral arteries is normal and symmetric.? No aneurysms are seen.? ? NECK CT ANGIOGRAPHY:? Carotid system:? The great vessels demonstrate a conventional anatomy as they arise from the aortic arch.? The origins of the common carotid arteries appear patent.? The common carotid arteries demonstrate normal caliber and courses.? The bifurcation regions are both widely patent.? The internal carotid arteries demonstrate normal calibers and courses.? ? Posterior circulation:? The origins of the vertebral arteries both appear widely patent.? The more superior extracranial portions of both vertebral arteries also demonstrate normal courses and calibers.? They join to form a normal appearing basilar artery.? ? Soft tissues:? Visualized neck soft tissues demonstrate no suspicious abnormalities.? ? Bones:? No suspicious bony lesions.? Visualized cervical spine appears normally aligned.? IMPRESSION:? ? 1. No CT evidence of acute intracranial abnormalities.? No area of abnormal intracranial enhancement. ? 2. Atherosclerotic disease in distal intracranial portion of bilateral internal carotid arteries without hemodynamically significant stenosis. ? 3. No hemodynamically significant stenosis or aneurysm is seen in the intracranial circulation. ? 4. No hemodynamically significant stenosis or aneurysm is seen in bilateral neck arteries.? ? Any quantitative measurements of stenosis were performed using NASCET criteria.? ? ? Dictated by: Jose Fisher M.D. on 04/11/2023 at 14:24 ? ? Chest x-ray: Radiologist's Impression: PROCEDURE:? XR CHEST 1V ? INDICATIONS:? chest pain ? TECHNIQUE:? One view of the chest was acquired.? ? COMPARISON:? [facility], , XR CHEST 1V, 03/03/2023, 1:17. ? FINDINGS:? ? Surgical changes and devices:? None.? ? Lungs and pleura:? Lungs are clear.? No pleural effusions or pneumothorax.? ? Mediastinum:? Mediastinal contours appear normal.? Heart size is normal.? ? Bones and chest wall:? No suspicious bony lesions.? Overlying soft tissues appear unremarkable.? ? IMPRESSION:? No acute cardiopulmonary pathology. ? ? Dictated by: Jose Fisher M.D. on 04/11/2023 at 14:2 MDM Narrative Medical decision making narrative: Patient is a 72-year-old male history of CAD on Eliquis presenting today with difficulty speaking that has now resolved. Low NIH stroke scale of 1 only for t he month but he actually said it was and end of March starting April. No focal deficits. He frequently has UTI is another consideration is UTI however symptoms have resolved he is mostly back to baseline. Unlikely to be encephalopathic secondary to UTI or sepsis. Urinalysis does show leukocytes wi th few bacteria it is cultured but no nitrates. At this time I think reasonable to wait for culture before starting antibiotics. Initially it was also concern for possible intracranial hemorrhage with confusion on anticoagulation. Head CT is negative. Patient is not a tPA candidate on anticoagulation with resolved symptoms. Dr. Wong accepts patient. Discharge Plan Departure Patient Disposition: Admitted as Observation Clinical Impression: Transient cerebral ischemia Admit Date/Time: 04/11/23 15:07 Admit Provider: Landon Wong
[2023-04-11 13:36] LABS: PTT Partial Thromboplastin Tim 39 SECONDS (26-36)
[2023-04-11 13:41] LABS: Alanine Aminotransferase 17 IU/L (<50); Albumin 3.9 g/dL (3.5-5.0); Albumin Globulin Ratio 1.4 (1.0-2.8); Alkaline Phosphatase 91 U/L (38-126); Aspartate Aminotransferase 19 IU/L (17-59); BUN Creatinine Ratio 10.8 (6-22); Bilirubin Total 0.7 mg/dL (0.2-1.3); Blood Urea Nitrogen 7 mg/dL (9-20); Calcium 9.2 mg/dL (8.4-10.2); Carbon Dioxide 29 mmol/L (22-32); Chloride 99 mmol/L (98-107); Creatine Kinase 41 U/L (55-170); Estimated Glomerular Filt Rate > 60 mL/min (>60); Globulin 2.8 g/dL (1.7-4.1); Glucose 134 mg/dL (80-110); HEMOLYSIS < 15 (0-50); Lipase 27 U/L (23-300); Potassium 4.2 mmol/L (3.4-5.1); Sodium 133 mmol/L (137-145); Total Protein 6.7 g/dL (6.3-8.2)
[2023-04-11 13:52] LABS: Troponin I < 0.012 ng/mL (0.01-0.034)
[2023-04-11 13:56] LABS: Procalcitonin 0.04 ng/mL (<0.5)
--- NOTE | 2023-04-11 14:24 | PC.NURSE ---
Pt has known weakness and limited mobility in right leg due to increased hip/back pain. Reports he can move that extremity, but lifting off the bed for assessment is too painful. Provider aware. Only symptom pt currently having is occasional trouble finding words/repetitive questions.
[2023-04-11 15:05] LABS: Appearance Urine UA CLEAR; Bilirubin Urine UA NEGATIVE (NEGATIVE); Color Urine UA YELLOW; Glucose Urine UA NEGATIVE (Negative); Ketones Urine UA NEGATIVE (NEGATIVE); Leukocyte Esterase Urine UA 1+ (NEGATIVE); Nitrite Urine UA NEGATIVE (Negative); Occult Blood Urine UA TRACE-INTACT (Negative); Protein Urine UA NEGATIVE (Negative); Specific Gravity Urine UA <=1.005 (1.000-1.035); Urobilinogen Urine UA 0.2 E.U./dL (0.2)
--- NOTE | 2023-04-11 15:06 | PC.NURSE ---
Patient was on his way to an appointment with urology to have his catheter and leg bag replaced. Provider Okmarley'ed to change his catheter today. Patient has a enlarged prostate with urinary retention. He has had a catheter the past 2 months.
[2023-04-11 15:09] LABS: Bacteria Urine Few (2-10); Culture Indicated Urine Specimen Cultured; RBC Urine 0-1/HPF (0-5/HPF); Squamous Epithelial Cell Urine 0-1 /HPF (0-5/HPF); WBC Urine 1-5/HPF (0-5/HPF)
--- NOTE | 2023-04-11 16:08 | DI.MRI.S_ITS ---
PROCEDURE: MR HEAD/BRAIN WO CON INDICATIONS: TIA, garbled speech for 1hr TECHNIQUE: Non-contrast axial T1 spin echo, axial T2 fast spin echo, sagittal and axial FLAIR, axial diffusion and ADC through the brain. Exam was terminated early secondary to claustrophobia. COMPARISON: [facility], CT, CT ANGIO HEAD AND NECK, 04/11/2023, 13:28. [facility], CT, CT STROKE, 04/11/2023, 13:22. [facility], CT, CT HEAD/BRAIN WO CON, 04/10/2023, 8:44. FINDINGS: Image quality: Excellent. CSF spaces: Ventricles appear symmetric in size and shape. Basal cisterns are patent. No extra-axial fluid collections. Brain: No intracranial bleeds or mass effects. There is cerebral volume loss for age. There are periventricular and deep white matter chronic small vessel ischemic changes. Brainstem appears normal. Diffusion-weighted images show no acute ischemic insults. No chronic ischemic insults. Normal intravascular flow voids are present. Skull and face: Calvarial bone marrow is normal in signal. Orbits are normal. Sinuses: Sinuses and mastoids are clear. IMPRESSION: 1. No acute intracranial process. It is noted full exam was not completed secondary to claustrophobia. 2. Moderate atrophy and chronic microvascular ischemic changes. Dictated by: Milli Ahuja M.D. on 04/11/2023 at 21:27 Approved by: Milli Ahuja M.D. on 04/11/2023 at 21:29
--- NOTE | 2023-04-11 16:10 | DI.ECHO.S_ITS ---
[facility] +[facility]+ : : [address] : [address] : : : : [id number] : : : : Phone: [phone]+ Echocardiogram Report + + :Name: CIRO BOWEN Study Date: 04/12/2023 Height: 73 in : :[facility] ReadingLocation: Weight: 195 lb : : Gender: Male BSA: 2.1 m2 : :: 1950 Age: 72 yrs BP: 152/77 mmHg: :Reason For Study: TIA : :Ordering Physician: Marvin, : :Kerry Performed By: Odette Todd : :Referring: KERRY FRANKS A : + + Interpretation Summary The left ventricle is normal in size. There is mild-moderate concentric left ventricular hypertrophy. The ejection fraction is estimated to be 40-45%. Severe hypokinesis to akinesis of basal to mid inferior wall as well as hypokinetic basal inferior septum. Diastolic parameters suggest a pseudonormalization pattern, consistent with probable elevated filling pressures. The right ventricle is normal size. The right ventricular systolic function is normal. There is mild aortic regurgitation. The IVC is of normal diameter and collapses greater than 50% with a sniff. This suggests a low right atrial pressure of 3 mm Hg. The ascending aorta is mild-moderately enlarged. Procedure: A two-dimensional transthoracic echocardiogram with color flow and Doppler was performed. The study quality was technically adequate. There is no prior echocardiogram noted for this patient. The patient was in sinus bradycardia with heart rates between 54-58 bpm during the exam. Left Ventricle: The left ventricle is normal in size. There is mild-moderate concentric left ventricular hypertrophy. There is no thrombus. The ejection fraction is estimated to be 40-45%. Severe hypokinesis to akinesis of basal to mid inferior wall as well as hypokinetic basal inferior septum. Diastolic parameters suggest a pseudonormalization pattern, consistent with probable elevated filling pressures. Right Ventricle: The right ventricle is normal size. The right ventricular systolic function is normal. Atria: The left atrial size is normal. Right atrial size is normal. There is no Doppler evidence for an interatrial shunt. Mitral Valve: The mitral valve is normal. There is no mitral valve stenosis. There is trace mitral regurgitation. Aortic Valve: The aortic valve is trileaflet. The aortic valve opens well. There is no aortic valve stenosis. There is mild aortic regurgitation. Tricuspid Valve: The tricuspid valve leaflets are thin and pliable. There is no tricuspid stenosis. There is trace tricuspid regurgitation. Pulmonary artery pressures cannot be estimated because of the lack of a measurable TR jet velocity. Pulmonic Valve: The pulmonic valve is not well seen, but is grossly normal. There is no pulmonic valvular stenosis. There is no pulmonic valvular regurgitation. Great Vessels: The aortic root is normal size. The ascending aorta is mild- moderately enlarged. The IVC is of normal diameter and collapses greater than 50% with a sniff. This suggests a low right atrial pressure of 3 mm Hg. Pericardium/ Pleura There is an anterior echo-free space consistent with a fat pad. There is no pleural effusion. MMode/2D Measurements & Calculations LVIDd: 5.6 cm LVOT diam: 2.2 cm LVIDs: 4.4 cm Ao root diam: 4.0 cm FS: 21.4 % asc Aorta Diam: 4.2 cm EPSS: 1.6 cm IVSd: 1.4 cm LVPWd: 1.1 cm LV read. diameter/BSA (cm/m^2): 2.6 LV sys. diameter/BSA (cm/m^2): 2.1 LA A2 area: 16.9 cm2 RA long axis: 5.0 cm LA A4 area: 13.0 cm2 RA area: 16.4 cm2 LA length (vol): 5.2 cm RA vol: 46.0 ml LA vol: 35.9 ml RA : 21.6 ml/m2 LA vol index: 16.9 ml/m2 RVD1 (basal): 4.0 cm LVLs ap4: 7.3 cm LVLd ap2: 8.1 cm TAPSE_phl: 2.0 cm LVLs ap2: 7.5 cm Doppler Measurements & Calculations Ao V2 max: 107.0 cm/sec LVOT Max Daryl: 82.5 cm/sec Ao V2 mean: 82.7 cm/sec LV V1 max P.7 mmHg Ao max P.0 mmHg LV V1 VTI: 18.1 cm Ao mean P.0 mmHg RUY(I,D): 2.5 cm2 Ao V2 VTI: 27.5 cm RUY(V,D): 2.9 cm2 sev ratio: 0.66 RUY indexed to BSA (cm^2/m^2): 1.2 MV E max daryl: 83.3 cm/sec PA V2 max: 78.8 cm/sec MV A max daryl: 66.8 cm/sec PA V2 mean: 58.2 cm/sec MV E/A: 1.2 PA mean P.0 mmHg Med Peak E' Daryl: 5.3 cm/sec PA pr(Accel): 23.2 mmHg E/E' med: 15.7 Lat Peak E' Daryl: 10.0 cm/sec E/E' lat: 8.4 E/e' average: 12.0 MV dec time: 0.12 sec SV(LVOT): 68.8 ml AV VR_phl: 0.77 RUY(VTI)/BSA_phl: 1.2 MV P1/2t-pr_phl: 36.0 msec Reading Physician:10:52 AM
--- NOTE | 2023-04-11 16:12 | PM.HP.1 ---
History of Present Illness History of Present Illness Date Patient Seen: 04/11/23 Time Patient Seen: 16:00 Chief complaint: Trouble concentrating, Pain, Trouble speaking Narrative: Miah Pope is a 72yo M with PMH of previous stroke with chronic visual deficits on eliquis, CAD s/p stents, DM2 on metformin only, HTN, HLD, BPH s/p chronic indwelling causey, frequent CAUTI's, daily smoker, chronic lumbar back pain with radiculopathy, and GERD who presents with possible TIA. Patient cannot recall today's events very well so per patient's family he was being driven somewhere today and while in the car patient had sudden-onset change in his speech where he was saying words but they were coming out in sentences that made no sense. This lasted for almost an hour and then resolved by the time he came to the ED. He reports compliance with all of his medications including aspirin and eliquis. He says the year is 2021 and the month is jun. His mouth is very dry. He denies any facial droop, weakness in extremities or swallow difficulty. No CP, SOB, NV, abd pain or diarrhea. [facility] Social History Smoking Status: Current every day smoker Meds Home Medications and Allergies Home Medications Medication Instructions Recorded Confirmed Type amitriptyline 100 mg tablet 100 mg PO BEDTIME 04/11/23 04/11/23 History apixaban 5 mg tablet (Eliquis) 5 mg PO DAILY 04/11/23 04/11/23 History atorvastatin 40 mg tablet 40 mg PO DAILY 04/11/23 04/11/23 History enalapril maleate 10 mg tablet 10 mg PO DAILY 04/11/23 04/11/23 History finasteride 5 mg tablet 5 mg PO DAILY 04/11/23 04/11/23 History metformin 500 mg tablet 500 mg PO DAILY 04/11/23 04/11/23 History metoprolol tartrate 25 mg tablet 25 mg PO DAILY 04/11/23 04/11/23 History omeprazole 20 mg capsule,delayed 20 mg PO DAILY 04/11/23 04/11/23 History release tamsulosin 0.4 mg capsule 0.4 mg PO DAILY 04/11/23 04/11/23 History tramadol 50 mg tablet 50 mg PO Q8HR PRN Pain (Scale 04/11/23 04/11/23 History Score 1-3) Allergies Allergy/AdvReac Type Severity Reaction Status Date / Time No Known Drug Allergies Allergy Verified 04/11/23 13:16 Review of Systems Review of Systems Narrative: All other systems reviewed with the patient and are negative unless otherwise stated. Exam Vital Signs (past 8 hours): - 04/11/23 13:10 04/11/23 14:16 04/11/23 14:18 Temperature 99.1 F Pulse Rate 72 72 71 Respiratory Rate 15 16 Blood Pressure 172/91 H Pulse Oximetry 94 96 97 Oxygen Delivery Method Room Air Room Air 04/11/23 14:19 04/11/23 13:35 04/11/23 14:00 Temperature Pulse Rate Respiratory Rate Blood Pressure 173/84 H 164/86 H 148/85 H Pulse Oximetry Oxygen Delivery Method 04/11/23 14:19 04/11/23 14:30 04/11/23 14:30 Temperature Pulse Rate 70 78 Respiratory Rate 19 Blood Pressure 140/88 Pulse Oximetry 96 95 Oxygen Delivery Method Room Air 04/11/23 14:59 04/11/23 15:00 04/11/23 15:00 Temperature Pulse Rate 60 68 Respiratory Rate 23 Blood Pressure 158/80 H Pulse Oximetry 96 96 Oxygen Delivery Method 04/11/23 15:30 04/11/23 16:00 04/11/23 16:00 Temperature Pulse Rate 57 L 56 L Respiratory Rate 19 21 Blood Pressure 132/80 Pulse Oximetry 95 94 Oxygen Delivery Method Room Air Room Air Oxygen Delivery Method Room Air Narrative Exam Narrative: GEN: no acute distress, difficulty speaking due to dry mouth HEENT: dry mucous membranes, PERRL NECK: trachea midline, no JVD CV: regular rate and rhythm, no murmurs PULM: clear bilaterally ABD: soft, nontender, nondistended, no organomegaly, causey cath present EXT: warm and well perfused with no edema NEURO: awake, alert, oriented x2, no focal deficits Objective Labs 04/11/23 13:15 04/11/23 13:15 Labs: Laboratory Results - last 24 hr 04/11/23 04/11/23 04/11/23 13:15 13:15 13:15 WBC 9.1 RBC 5.08 Hgb 14.8 Hct 43.3 MCV 85.4 MCH 29.2 MCHC 34.2 RDW 15.4 H Plt Count 176 Neut % (Auto) 83.3 H Lymph % (Auto) 10.5 L [place] % (Auto) 5.1 Eos % (Auto) 0.2 L Baso % (Auto) 0.9 Neut # (Auto) 7600 H Lymph # (Auto) 1000 L [place] # (Auto) 500 Eos # (Auto) 0 Baso # (Auto) 100 PT 17.4 H INR 1.5 H APTT 39 H Sodium Potassium Chloride Carbon Dioxide BUN Creatinine Estimated GFR BUN/Creatinine Ratio Glucose Calcium Total Bilirubin AST ALT Alkaline Phosphatase Total Creatine Kinase CK-MB (CK-2) CK-MB (CK-2) Rel Index Troponin I Total Protein Albumin Globulin Albumin/Globulin Ratio Lipase Procalcitonin 0.04 Urine Color Urine Appearance Urine pH Ur Specific [place] Urine Protein Urine Glucose (UA) Urine Ketones Urine Occult Blood Urine Nitrate Urine Bilirubin Urine Urobilinogen Ur Leukocyte Esterase Urine RBC Urine WBC Ur Squamous Epith Cells Urine Bacteria Ur Culture Indicated? 04/11/23 04/11/23 13:15 14:51 WBC RBC Hgb Hct MCV MCH MCHC RDW Plt Count Neut % (Auto) Lymph % (Auto) [place] % (Auto) Eos % (Auto) Baso % (Auto) Neut # (Auto) Lymph # (Auto) [place] # (Auto) Eos # (Auto) Baso # (Auto) PT INR APTT Sodium 133 L Potassium 4.2 Chloride 99 Carbon Dioxide 29 BUN 7 L Creatinine 0.65 L Estimated GFR > 60 BUN/Creatinine Ratio 10.8 Glucose 134 H Calcium 9.2 Total Bilirubin 0.7 AST 19 ALT 17 Alkaline Phosphatase 91 Total Creatine Kinase 41 L CK-MB (CK-2) TNP CK-MB (CK-2) Rel Index TNP Troponin I < 0.012 Total Protein 6.7 Albumin 3.9 Globulin 2.8 Albumin/Globulin Ratio 1.4 Lipase 27 Procalcitonin Urine Color Yellow Urine Appearance Clear Urine pH 7.0 Ur Specific [place] <=1.005 Urine Protein Negative Urine Glucose (UA) Negative Urine Ketones Negative Urine Occult Blood Trace-intact Urine Nitrate Negative Urine Bilirubin Negative Urine Urobilinogen 0.2 Ur Leukocyte Esterase 1+ H Urine RBC 0-1/hpf Urine WBC 1-5/hpf Ur Squamous Epith Cells 0-1 /hpf Urine Bacteria Few (2-10) H Ur Culture Indicated? Specimen cultured Assessment & Plan Assessment & Plan narrative: # likely TIA -patient had 1 hour of word salad speech which then resolved -ABCD2 score of 5-6 -continue home aspirin and eliquis -CT head and CTA head normal -MRI brain ordered -echo -tele -increase home lipitor to 80 nightly -24 hours of permissive HTN -check A1c, lipids # previous stroke -per family had a stroke in past and is on eliquis for this # CAD -per family on is aspirin daily for history of cardiac stents # HTN -hold home ACEi for 24 hours # HLD -increase home lipitor to 80mg nightly # low TSH, normal T4 -recheck TSH at later date when not in hospital # chronic back pain -pain meds PRN # BPH s/p chronic indwelling causey -UA negative -has f/u with urology soon for cystoscopy -continue flomax and finasteride # GERD -continue PPI # DM2 -recently started on metformin -check A1c -low dose SSI only Code status is full code. DVT prophylaxis with Eliquis. Proxy is daughter Ami. I have reviewed home meds and used all available resources to reconcile the home meds. This patient will be admitted as observation and will require less than 2 midnights of hospital time to treat TIA.
[2023-04-11 16:35] LABS: Cholesterol 106 mg/dL (140-199); HDL Cholesterol 48 mg/dL (40-60); LDL Cholesterol Calculated 48 mg/dL (<100); Magnesium 1.8 mg/dL (1.6-2.3); Triglycerides 48 mg/dL (35-150)
[2023-04-11 17:07] LABS: TSH w/ Reflex to FT4 < 0.02 uIU/mL (0.47-4.68)
[2023-04-11 17:31] LABS: Free T4, Direct Thyroxine 1.11 ng/dL (0.78-2.19)
[2023-04-11] MEDS: ENOXAPARIN 40 MG/0.4 ML SYRINGE SUBCUT (17:54)
[2023-04-11] MEDS: ASPIRIN EC 81 MG TABLET PO (18:41)
[2023-04-11] MEDS: ACETAMINOPHEN 325 MG TABLET 650 MG PO (20:04)
[2023-04-11] MEDS: AMITRIPTYLINE 25 MG TABLET 100 MG PO (20:05)
[2023-04-11] MEDS: OXYCODONE IR 5 MG TABLET PO (20:05)
[2023-04-11] MEDS: APIXABAN 5 MG TABLET PO (20:05)
[2023-04-11] MEDS: HYDROMORPHONE 0.5 MG INJ IV (20:24)
--- NOTE | 2023-04-11 20:29 | PC.NURSE ---
Addendum entered by Magda Edmond R.N. 04/11/23 21:00: Pt returned to floor 2100. Pain well controlled, Pt is back on tele and states pain is 3/10 of right hip. Denies SOB,Lightheadedness or any N/V. call light within reach. Original Note: Guide Dog Instructor Pt off floor and off tele to get scanned. Medicated with 0.5 Dilaudid PER M.D. instructions from day shift RN. Pt left floor 2029.
[2023-04-12 00:56] VITALS: BP 139/69; PULSE 52; RESP 18; TEMP 36.6; O2SAT 94
[2023-04-12 05:00] VITALS: BP 152/77; PULSE 56; RESP 18; TEMP 36.6; O2SAT 94
[2023-04-12 05:24] LABS: BUN Creatinine Ratio 9.2 (6-22); Blood Urea Nitrogen 6 mg/dL (9-20); Calcium 9.1 mg/dL (8.4-10.2); Carbon Dioxide 28 mmol/L (22-32); Chloride 104 mmol/L (98-107); Estimated Glomerular Filt Rate > 60 mL/min (>60); Glucose 100 mg/dL (80-110); HEMOLYSIS < 15 (0-50); Potassium 4.6 mmol/L (3.4-5.1); Sodium 134 mmol/L (137-145)
[2023-04-12 05:26] LABS: Add Manual Diff / Slide Review NO; Basophils Absolute Auto 100 /uL (0-100); Basophils Percent Auto 1.8 % (0-2); Eosinophils Absolute Auto 200 /uL (0-450); Eosinophils Percent Auto 2.2 % (2-4); Hematocrit 40.8 % (41-53); Hemoglobin 13.9 g/dL (13.5-17.5); Lymphocytes Absolute Auto 1500 /uL (1100-4500); Lymphocytes Percent Auto 17.9 % (25-40); Mean Corpuscular HGB Conc 34.1 % (30-36); Mean Corpuscular Hemoglobin 29.3 PG (26-34); Mean Corpuscular Volume 85.9 fL (80-100); Monocytes Absolute Auto 600 /uL (0-900); Monocytes Percent Auto 7.4 % (3-14); Neutrophils Absolute Auto 5900 /uL (1500-7000); Neutrophils Percent Auto 70.7 % (50-75); Platelet Count 160 X10^3/uL (150-400); Red Blood Cell Count 4.76 X10^6/uL (4.5-5.9); Red Cell Distribution Width 15.3 % (11.6-14.8); White Blood Cell Count 8.3 X10^3/uL (4.5-11.0)
[2023-04-12] MEDS: PANTOPRAZOLE DR 20 MG TABLET PO (06:03)
[2023-04-12 07:19] LABS: x Labcorp Estim. Avg Glu (eAG) 134 mg/dL (.); x Labcorp Hemoglobin A1c 6.3 % (4.8-5.6)
[2023-04-12 08:00] VITALS: BP 158/82; PULSE 56; RESP 17; TEMP 36.6; O2SAT 95
[2023-04-12] MEDS: TAMSULOSIN 0.4 MG CAPSULE PO (09:31)
[2023-04-12] MEDS: ASPIRIN EC 81 MG TABLET PO (09:31)
[2023-04-12] MEDS: SENNOSIDES 8.6 MG TABLET PO (09:31)
[2023-04-12] MEDS: FINASTERIDE 5 MG TABLET PO (09:31)
[2023-04-12] MEDS: OXYCODONE IR 5 MG TABLET PO (09:31)
[2023-04-12] MEDS: ATORVASTATIN 20 MG TABLET 80 MG PO (09:31)
[2023-04-12] MEDS: APIXABAN 5 MG TABLET PO (09:31)
[2023-04-12] MEDS: cefTRIAXone 1,000 MG in SODIUM CHLORIDE 0.9% 100 ML 200 MG IV (09:32)
--- NOTE | 2023-04-12 10:24 | OT.IP.EVAL ---
Occupational Therapy Inpatient Evaluation/Re-Eval M1 PT/OT-IP Prior Functional Status Start: 04/12/23 11:22 Freq: NEEDED Status: Active Protocol: Document 04/12/23 11:22 CGR (Rec: 04/12/23 11:38 R [id number]) Medical Review Prior Functional Status Medical History Reviewed Yes Communication Pt is an effective verbal communicator Mobility and Gait Pt was IND at baseline and states that he uses a 4WW at times when he feels like his balance isn't as good. Activities of Daily Living and IADL's Pt was IND in all ADLs at baseline. Pt states that getting in and out of the tub is difficult. Social History Household Members none Living Arrangements House Number of Floors (Floors) One Floor Number of Stairs To Enter/Railing? 1 step to enter. Home Environment Standard Height Toilet,Tub/ Shower Home Equipment Four Wheel Walker,Shower Seat without Backrest,Hand Held Shower,Grab Bars In Shower Employment Status Retired Additional Social History Comment Pt states he lives alone and his daughter and son in law help with all driving. M2 OT-IP Current Condition Start: 04/12/23 11:22 Freq: Status: Active Protocol: Document 04/12/23 11:22 CGR (Rec: 04/12/23 11:38 R [id number]) Occupational Therapy Current Condition Current Condition Evaluation Date 04/12/23 Treatment Diagnosis sudden onset of change in speech, TIA Diagnosis Onset Date 04/11/23 M3 OT- IP Subjective and Pain Start: 04/12/23 11:22 Freq: Status: Active Protocol: Document 04/12/23 11:22 CGR (Rec: 04/12/23 11:38 R [id number]) OT- Subjective Occupational Therapy Visit Type Type Initial Evaluation Visit Start Time 10:57 Visit Stop Time 10:24 Total Visit Minutes 27 Notes Per nursing, pt may need to have a BM. OT Pain Assessment Pain When Pain Assessed At Rest Pain Present Pain Present Pain Reported Location Right Hip Scale Used did not rate Pain Behaviors Facial Grimacing,Guarding Management Techniques Distraction,Modification of Treatment,Re-positioning M4 OT- IP ADL's Start: 04/12/23 11:22 Freq: Status: Active Protocol: Document 04/12/23 11:22 CGR (Rec: 04/12/23 11:38 R [id number]) OT [id number] Comments OT Self-Feeding Comments not meal time OT ADL-Grooming Comments OT Grooming Comments pt declined to perform OT ADL-Oral Care Comments Oral Care Comments pt declined to perform OT ADL-Dressing Comments OT Dressing Comments pt declined to perform OT ADL-Toileting General Evaluation Toileting Ability Standby Assistance Comments OT Toileting Comments Pt sat on toielt but was unable to void. Pt with a causey. OT ADL-Bathing Comments OT Bathing Comments not performed, pt declined M5 OT- IP IADL's Start: 04/12/23 11:22 Freq: Status: Active Protocol: Document 04/12/23 11:22 CGR (Rec: 04/12/23 11:38 R [id number]) OT-Instrumental Activities of Daily Living Deficits IADL Deficits Identified No Deficits Home Safety Awareness Awareness of Need for Assistance at Home Good Awareness Ability to Problem Solve Emergency Able to Problem Solve Situations Medication Management Medication Management Comments concerns regarding pt's ability to perform Money Management Money Management Comments concerns regarding pt's ability to perform Meal Preparation Meal Preparation No Deficits Identified Cello Teacher Cello Teacher No Deficits Identified Driving Driving Comments Pt does not drive at baseline M6 OT- IP Functional Cognition Start: 04/12/23 11:22 Freq: Status: Active Protocol: Document 04/12/23 11:22 CGR (Rec: 04/12/23 11:38 CGR [id number]) Cognitive Factors Limiting Selfcare Function Cognitive Ability Level of Alertness Alert Patient Orientation Name,Age,Birthday,Month,Date, Year,Day of Week,Place, Situation Attention Span Ability Capable of Focused Attention, Capable of Sustained Attention Ability to Follow Commands Able to Follow One Step Commands with Increased Time, Able to Follow One Step Commands with Repetition Cognitive Comments Cognitive Assessment Comments Pt would benefit from a formal cognitive assessment but is unlikely to agree to participate in one. OT- Vision and Hearing OT- Hearing Assessment OT- Hearing Assessment WFL OT- Vision Assessment Visual Acuity WFL Visual Attentiveness WFL Occular Pursuits WFL Visual Convergence WFL M7 OT- IP Mobility and Balance Start: 04/12/23 11:22 Freq: Status: Active Protocol: Document 04/12/23 11:22 CGR (Rec: 04/12/23 11:38 R [id number]) OT- Bed Mobility Assessment Supine to Sit Supine to Sit Assist Standby Assistance Scooting Scooting to Edge of Bed Standby Assistance OT-Transfer Assessment Sit to and From Stand Sit to and from Stand Standby Assistance Transfers Transfer Ability Standby Assistance Technique Transfer Destination Bed,Chair,Toilet Transfer Technique Stand Step Pivot Devices Transfer Assistive Devices Gait Belt,Front Wheeled Walker Comments Mobility Comments Pt ambulates around the room without assist. OT- Balance Assessment Sitting Balance and Reactions Static Sitting Balance Ability Good Dynamic Sitting Balance Ability Good Standing Balance and Reactions Static Standing Balance Ability Good Dynamic Standing Balance Ability Good M8 OT- IP Objective Assessments Start: 04/12/23 11:22 Freq: Status: Active Protocol: Document 04/12/23 11:22 CGR (Rec: 04/12/23 11:38 CGR [id number]) OT Gross Range of Motion Upper Extremity Range of Motion Assessment Within Functional Limits OT Strength Upper Extremity Strength Assessment Within Functional Limits Comments Strength Comments 5/5 OT- Coordination Assessment Upper Extremity Finger to Nose Test Within Functional Limits Finger Tapping Test Within Functional Limits OT-Muscle Tone Assessment Muscle Tone WNL Yes OT Sensation Assessment Edema Edema Absent M9 OT- IP Assessment and Plan Start: 04/12/23 11:22 Freq: Status: Active Protocol: Document 04/12/23 11:22 CGR (Rec: 04/12/23 11:38 CGR [id number]) OT Summary Assessment and Plan Potential Rehabilitation Potential Good Analytic Complexity at Evaluation Low Summary OT Impairments Functional Cognition Progress Towards Goals Progressing Toward Goals,Safe For Discharge Assessment Summary Pt presents as a low complexity evaluation s/p admit for possible CVA. Pt appears to be at or close to his baseline for ADLs and functional mobility but might benefit from a formal cog assessment. Pt is unlikely to agree to the cog assessment. Pt will benefit from home health OT for home set up as things get more difficult for him in his home. Goals Dressing Goal Independent Shower Transfer Goal Independent Frequency of Treatment Frequency Of Treatment Once a Day Treatment Plan OT Treatment Plan ADL Training,Functional Mobility,Patient/Family Education,Discharge Planning Other Treatment Recommendations and Next shower and dressing assessment Treatment Focus Discharge Recommendations OT Discharge Recommendations Home Transportation Needs at Discharge Private Vehicle
--- NOTE | 2023-04-12 11:06 | PM.DS.1 ---
History of Present Illness History of Present Illness Date Patient Seen: 04/11/23 Time Patient Seen: 16:00 Chief complaint: Trouble concentrating, Pain, Trouble speaking Narrative: Miah Pope is a 72yo M with PMH of previous stroke with chronic visual deficits on eliquis, CAD s/p stents, DM2 on metformin only, HTN, HLD, BPH s/p chronic indwelling causey, frequent CAUTI's, daily smoker, chronic lumbar back pain with radiculopathy, and GERD who presents with possible TIA. Patient cannot recall today's events very well so per patient's family he was being driven somewhere today and while in the car patient had sudden-onset change in his speech where he was saying words but they were coming out in sentences that made no sense. This lasted for almost an hour and then resolved by the time he came to the ED. He reports compliance with all of his medications including aspirin and eliquis. He says the year is 2021 and the month is jun. His mouth is very dry. He denies any facial droop, weakness in extremities or swallow difficulty. No CP, SOB, NV, abd pain or diarrhea. Discharge Providers Provider Date of admission: 04/11/23 15:07 Discharge Date: 04/12/23 Primary care physician: Duke Mclean PA-C Consults: 04/11/23 18:13 Consult to Physical Therapy Evaluate & Treat Comment: Physician Instructions: Evaluate and Treat 04/11/23 18:14 Consult to Occupational Therapy Evaluate & Treat Comment: Physician Instructions: Evaluate and treat Consult to Speech Therapy Evaluate & Treat Comment: check for dysarthria, dysphagia. TIA Physician Instructions: Evaluate and treat Discharge provider: Landon Wong DO Summary Hospital Course Discharge Diagnosis: # likely TIA -patient had 1 hour of word salad speech which then resolved -ABCD2 score of 5-6 -continue home aspirin and eliquis -CT head and CTA head normal -MRI brain negative, but limited due to claustrophobia -echo with EF 40-45%, no clot -tele -A1c 6.3%, LDL 48 # CAUTI -UA without pyuria but urine culture growing GNB -received 1 dose of rocephin -will finish with 4 days of po cipro to cover for UTI # previous stroke -per family had a stroke in past and is on eliquis for this # CAD -per family on is aspirin daily for history of cardiac stents # HTN -hold home ACEi for 24 hours, resumed on dc # HLD -continue statin # low TSH, normal T4 -recheck TSH at later date when not in hospital # chronic back pain -pain meds PRN # BPH s/p chronic indwelling causey -UA negative -has f/u with urology soon for cystoscopy -continue flomax and finasteride # GERD -continue PPI # DM2 -recently started on metformin -A1c 6.3% -low dose SSI only Hospital Course: Admitted for possible TIA with 1 hour of word salad which resolved. MRI brain showed no evidence of new stroke. Patient was continued on aspirin and eliquis. Urine grew GNB so given course of po cipro. He will f/u with urology as outpatient. Time Spent with Patient Time spent: Greater than 30 minutes Exam Vital Signs (past 8 hours): - 04/12/23 05:00 04/12/23 08:00 Temperature 97.9 F 97.8 F Pulse Rate 56 L 56 L Respiratory Rate 18 17 Blood Pressure 152/77 H 158/82 H Pulse Oximetry 94 95 Oxygen Flow Rate 0 Oxygen Delivery Method Room Air Oxygen Flow Rate 0 Narrative Exam Narrative: GEN: no acute distress, difficulty speaking due to dry mouth HEENT: dry mucous membranes, PERRL NECK: trachea midline, no JVD CV: regular rate and rhythm, no murmurs PULM: clear bilaterally ABD: soft, nontender, nondistended, no organomegaly, causey cath present EXT: warm and well perfused with no edema NEURO: awake, alert, oriented x2, no focal deficits Objective Labs 04/12/23 04:51 04/12/23 04:51 Labs: Laboratory Results - last 24 hr 04/11/23 04/11/23 04/11/23 13:15 13:15 13:15 WBC 9.1 RBC 5.08 Hgb 14.8 Hct 43.3 MCV 85.4 MCH 29.2 MCHC 34.2 RDW 15.4 H Plt Count 176 Neut % (Auto) 83.3 H Lymph % (Auto) 10.5 L Jay % (Auto) 5.1 Eos % (Auto) 0.2 L Baso % (Auto) 0.9 Neut # (Auto) 7600 H Lymph # (Auto) 1000 L Jay # (Auto) 500 Eos # (Auto) 0 Baso # (Auto) 100 PT 17.4 H INR 1.5 H APTT 39 H Sodium Potassium Chloride Carbon Dioxide BUN Creatinine Estimated GFR BUN/Creatinine Ratio Glucose Hgb A1c (Ref Lab) Estim Average Glucose Calcium Magnesium Total Bilirubin AST ALT Alkaline Phosphatase Total Creatine Kinase CK-MB (CK-2) CK-MB (CK-2) Rel Index Troponin I Total Protein Albumin Globulin Albumin/Globulin Ratio Triglycerides Cholesterol LDL Cholesterol, Calc HDL Cholesterol Lipase Procalcitonin 0.04 TSH Free T4 Urine Color Urine Appearance Urine pH Ur Specific [place] Urine Protein Urine Glucose (UA) Urine Ketones Urine Occult Blood Urine Nitrate Urine Bilirubin Urine Urobilinogen Ur Leukocyte Esterase Urine RBC Urine WBC Ur Squamous Epith Cells Urine Bacteria Ur Culture Indicated? 04/11/23 04/11/23 04/11/23 13:15 13:15 13:15 WBC RBC Hgb Hct MCV MCH MCHC RDW Plt Count Neut % (Auto) Lymph % (Auto) Jay % (Auto) Eos % (Auto) Baso % (Auto) Neut # (Auto) Lymph # (Auto) Jay # (Auto) Eos # (Auto) Baso # (Auto) PT INR APTT Sodium 133 L Potassium 4.2 Chloride 99 Carbon Dioxide 29 BUN 7 L Creatinine 0.65 L Estimated GFR > 60 BUN/Creatinine Ratio 10.8 Glucose 134 H Hgb A1c (Ref Lab) Estim Average Glucose Calcium 9.2 Magnesium 1.8 Total Bilirubin 0.7 AST 19 ALT 17 Alkaline Phosphatase 91 Total Creatine Kinase 41 L CK-MB (CK-2) TNP CK-MB (CK-2) Rel Index TNP Troponin I < 0.012 Total Protein 6.7 Albumin 3.9 Globulin 2.8 Albumin/Globulin Ratio 1.4 Triglycerides Cholesterol LDL Cholesterol, Calc HDL Cholesterol Lipase 27 Procalcitonin TSH < 0.02 L Free T4 1.11 Urine Color Urine Appearance Urine pH Ur Specific [place] Urine Protein Urine Glucose (UA) Urine Ketones Urine Occult Blood Urine Nitrate Urine Bilirubin Urine Urobilinogen Ur Leukocyte Esterase Urine RBC Urine WBC Ur Squamous Epith Cells Urine Bacteria Ur Culture Indicated? 04/11/23 04/11/23 04/11/23 13:15 13:15 14:51 WBC RBC Hgb Hct MCV MCH MCHC RDW Plt Count Neut % (Auto) Lymph % (Auto) Jay % (Auto) Eos % (Auto) Baso % (Auto) Neut # (Auto) Lymph # (Auto) Jay # (Auto) Eos # (Auto) Baso # (Auto) PT INR APTT Sodium Potassium Chloride Carbon Dioxide BUN Creatinine Estimated GFR BUN/Creatinine Ratio Glucose Hgb A1c (Ref Lab) 6.3 H Estim Average Glucose 134 Calcium Magnesium Total Bilirubin AST ALT Alkaline Phosphatase Total Creatine Kinase CK-MB (CK-2) CK-MB (CK-2) Rel Index Troponin I Total Protein Albumin Globulin Albumin/Globulin Ratio Triglycerides 48 Cholesterol 106 L LDL Cholesterol, Calc 48 HDL Cholesterol 48 Lipase Procalcitonin TSH Free T4 Urine Color Yellow Urine Appearance Clear Urine pH 7.0 Ur Specific [place] <=1.005 Urine Protein Negative Urine Glucose (UA) Negative Urine Ketones Negative Urine Occult Blood Trace-intact Urine Nitrate Negative Urine Bilirubin Negative Urine Urobilinogen 0.2 Ur Leukocyte Esterase 1+ H Urine RBC 0-1/hpf Urine WBC 1-5/hpf Ur Squamous Epith Cells 0-1 /hpf Urine Bacteria Few (2-10) H Ur Culture Indicated? Specimen cultured 04/12/23 04/12/23 04:51 04:51 WBC 8.3 RBC 4.76 Hgb 13.9 Hct 40.8 L MCV 85.9 MCH 29.3 MCHC 34.1 RDW 15.3 H Plt Count 160 Neut % (Auto) 70.7 Lymph % (Auto) 17.9 L Jay % (Auto) 7.4 Eos % (Auto) 2.2 Baso % (Auto) 1.8 Neut # (Auto) 5900 Lymph # (Auto) 1500 Jay # (Auto) 600 Eos # (Auto) 200 Baso # (Auto) 100 PT INR APTT Sodium 134 L Potassium 4.6 Chloride 104 Carbon Dioxide 28 BUN 6 L Creatinine 0.65 L Estimated GFR > 60 BUN/Creatinine Ratio 9.2 Glucose 100 Hgb A1c (Ref Lab) Estim Average Glucose Calcium 9.1 Magnesium Total Bilirubin AST ALT Alkaline Phosphatase Total Creatine Kinase CK-MB (CK-2) CK-MB (CK-2) Rel Index Troponin I Total Protein Albumin Globulin Albumin/Globulin Ratio Triglycerides Cholesterol LDL Cholesterol, Calc HDL Cholesterol Lipase Procalcitonin TSH Free T4 Urine Color Urine Appearance Urine pH Ur Specific [place] Urine Protein Urine Glucose (UA) Urine Ketones Urine Occult Blood Urine Nitrate Urine Bilirubin Urine Urobilinogen Ur Leukocyte Esterase Urine RBC Urine WBC Ur Squamous Epith Cells Urine Bacteria Ur Culture Indicated? [facility] Social History household members: none Smoking Status: Current every day smoker alcohol intake: current Discharge Plan Discharge Plan Patient Disposition: Home Provider Discharge Comment: You were admitted for a possible stroke or TIA. Your brain MRI was normal, although was limited because of claustrophobia. Your heart echo showed no clots. Your urine did grow a bacteria so I'm putting you on an antibiotic for a few days to treat this. Please continue your home meds as you take them. Discharge orders & Medications Prescriptions: New aspirin 81 mg Tablet,Delayed Release (Dr/Ec) 81 mg PO DAILY Qty: 30 0RF ciprofloxacin HCl [Cipro] 250 mg tablet 250 mg PO BID 4 Days Qty: 8 0RF Rx Instructions: start on 04/13 Continued enalapril maleate 10 mg tablet 10 mg PO DAILY omeprazole 20 mg capsule,delayed release(DR/EC) 20 mg PO DAILY Patient Comments: TAKE 1 CAPSULE BY MOUTH DAILY amitriptyline 100 mg tablet 100 mg PO BEDTIME Patient Comments: TAKE 1 TABLET BY MOUTH EVERY NIGHT AT BEDTIME finasteride 5 mg tablet 5 mg PO DAILY tamsulosin 0.4 mg capsule 0.4 mg PO DAILY atorvastatin 40 mg tablet 40 mg PO DAILY Eliquis 5 mg tablet 5 mg PO DAILY tramadol 50 mg tablet 50 mg PO Q8HR PRN (Reason: Pain (Scale Score 1-3)) Changed metformin 500 mg tablet 500 mg PO BID Qty: 30 0RF Patient Comments: HAS NOT STARTED YET 04/11/23 metoprolol tartrate 25 mg tablet 25 mg PO BID Qty: 30 0RF Follow up/Referrals: Duke Mclean PA-C [Primary Care Provider] - 2 Weeks Visit Report/Discharge Packet Instructions: How to Care for Your Causey Catheter -- Male, Urinary Tract Infection, Transient Ischemic Attack, DI for Transient Ischemic Attack, DI for Urinary Tract Infection (UTI) Stand Alone Forms: Patient Portal/API, Stroke Signs & Symptoms Discharge Data Primary Care Provider: Duke Mclean Attending Provider: Landon Wong Admit Date/Time: 04/11/23 15:07 Discharges patient from system. Discharge Date/Time: 04/12/23 13:06 Quality VTE Deep Vein Thrombosis/Pulmonary Embolism Present on Admission: No
[2023-04-12 11:23] VITALS: BP 162/90; PULSE 79; RESP 20; TEMP 36.7; O2SAT 97
--- NOTE | 2023-04-12 12:20 | CM.DANOTE ---
DCP: Case received, EMR reviewed and met with patient. Introduced self and role. Was able to obtain information regarding patient's baseline activity level prior to admission to the hospital, as well as his current living situation. DCP assessment completed with information currently available. Patient is a 72 year old male who admitted yesterday afternoon to the care of the hospitalist team. PCP: Dr. Mclean. Payer: confirmed: Medicare. Patient came to the hospital via private vehicle secondary to having increased confusion. Notes indicate that patient has an indwelling catheter, is prone to frequent UTIs. Notes also indicate that patient was in the car with his family driving to get his catheter changed, and patient started speaking gibberish. Family then drove patient here to the ER. He was admitted for 'TIA. Patient has history of prior CVAs, frequent urinary tract infections, and is a daily smoker. Patient had MRI today. Met with patient in his room. He was sitting up in bed, alert. He was having his breakfast. Patient stated, I really want to go home. Confirmed that hs resides in [place], he lives alone, but daughter, Ami Ornelas, lives nearby. Patient no longer drives, his daughter takes him to appointments. Has an indwelling causey catheter, gets it changed at provider office. P: Patient has discharge orders for home today, daughter to transport. He did work with [facility] today. Kimberly Murphy RN/Blockman Discharge Planning/Care Management CM Discharge Assessment Start: 04/12/23 12:14 Freq: Status: Active Protocol: Document 04/12/23 12:15 (Rec: 04/12/23 12:20 [id number]) Discharge Planning Assessment Assigned Social Science Instructor Kimberly Murphy RN/Blockman Advance Directives? No History Provided By Patient,Medical Record Prior Living Arrangements House Household Members none Type of transporation used prior to Relies on Others admit Independent with ADL's Yes Is patient alert and oriented? Yes Needs Assistance With Meal Prep,Home Chores / Shopping Caregiver for Another No DME Already Rented / Owned FWW / Walker Barriers to Discharge No Discharge Plan Home Transportation Arrangement Daughter Referrals Initiated None needed Whiteboard Updated in Patient Room with Yes name and ext. # of Social Science Instructor Review Status In Process Next Review Type Continued Stay Review
--- NOTE | 2023-04-12 12:20 | PT.IIE ---
Physical Therapy Inpatient Evaluation/Re-Eval M1 PT/OT-IP Prior Functional Status Start: 04/12/23 11:22 Freq: NEEDED Status: Active Protocol: Document 04/12/23 12:07 ES (Rec: 04/12/23 12:20 ES [id number]) Medical Review Prior Functional Status Medical History Reviewed Yes Communication Pt is an effective verbal communicator Mobility and Gait Pt was IND at baseline and states that he uses a 4WW at times when he feels like his balance isn't as good. Activities of Daily Living and IADL's Pt was IND in all ADLs at baseline. Pt states that getting in and out of the tub is difficult. Social History Household Members none Living Arrangements House Number of Floors (Floors) One Floor Number of Stairs To Enter/Railing? 1 step to enter. Home Environment Standard Height Toilet,Tub/ Shower Home Equipment Four Wheel Walker,Shower Seat without Backrest,Hand Held Shower,Grab Bars In Shower Employment Status Retired Additional Social History Comment Pt states he lives alone and his daughter and son in law help with all driving. States he doesn't leave the house by himself. M2 PT-IP Current Condition Start: 04/12/23 12:07 Freq: NEEDED Status: Active Protocol: Document 04/12/23 12:07 ES (Rec: 04/12/23 12:20 ES [id number]) Physical Therapy Current Condition Current Condition Evaluation Date 04/12/23 Treatment Diagnosis TIA Onset Date 04/11/23 M3 PT-IP Subjective Start: 04/12/23 12:07 Freq: NEEDED Status: Active Protocol: Document 04/12/23 12:07 ES (Rec: 04/12/23 12:20 ES [id number]) Subjective Physical Therapy Visit Type Type Initial Evaluation Visit Start Time 10:48 Visit Stop Time 11:08 Total Visit Minutes 20 Physical Therapy Visit Comments Patient Comments Patient alert, up in chair, agreeable to work with PT. Therapy Pain Assessment Pain Present Pain Present Denied Pain M4 PT-IP Mobility and Gait Start: 04/12/23 12:07 Freq: NEEDED Status: Active Protocol: Document 04/12/23 12:07 ES (Rec: 04/12/23 12:20 ES [id number]) PT-Transfer Assessment Sit to and From Stand Sit to and from Stand Independent,Use of Upper Extremities Equipment Transfer Assistive Device None,4 Wheeled Walker Gait Assessment Gait Gait Assistance Required: Independent Distance (Feet) 325 Assistive Devices Assistive Device Gait Belt,4 Wheeled Walker Gait Deviations General Gait Pattern Within Normal Limits Comments Gait Comments Ambulated with normal gait speed with 4WW, no LOB with turning. No lateral lean or path deviation. Slight asymmetry in step length, patient states his R leg is shorter causing him to have a limp. Min cues for routefinding. Stair Climbing Assessment Evaluation Level of Assist On Stairs Standby Assistance Devices Stair Climbing Assistive Devices Left Railing Technique/Endurance Stair Climbing Direction Ascend and Descend Stair Climbing Technique Step to Step Number of Steps Climbed 3 Query Text: Stair Climbing Set # Repetitions (reps) 2 PT-Balance Assessment Sitting Balance and Reactions Static Sitting Balance Ability Normal Dynamic Sitting Balance Ability Normal Standing Balance and Reactions Static Standing Balance Ability Good Dynamic Standing Balance Ability Good Device Used 4WW M5 PT-IP Objective Assessments Start: 04/12/23 12:07 Freq: NEEDED Status: Active Protocol: Document 04/12/23 12:07 ES (Rec: 04/12/23 12:20 ES [id number]) Orientation Orientation/Cognition Level of Alertness Alert Orientation Name,Age,Birthday,Month,Date, Year,Place Language Function Ability No Deficits Noted Safety Awareness Understands Safety Issues Memory Description No Deficits Noted Gross Range of Motion Upper Extremity ROM Assessment Within Functional Limits Lower Extremity ROM Assessment Within Functional Limits Strength Upper Extremity Strength Assessment Within Functional Limits Lower Extremity Strength Assessment Within Functional Limits Coordination Assessment Gross Coordination Gross Coordination WNL M7 PT-IP Assessment and Plan Start: 04/12/23 12:07 Freq: NEEDED Status: Active Protocol: Document 04/12/23 12:07 ES (Rec: 04/12/23 12:20 ES [id number]) PT Summary Assessment and Plan Potential Rehabilitation Potential Excellent Status of Condition at Evaluation Evolving Summary Assessment Summary Patient is a 72 year old male who presents at his baseline functional mobility. He was able to perform transfers and gait for community distance with 4WW without instability or LOB. No significant deficits in ROM or strength R vs L, with normal gait pattern . He displayed decreased understanding of his medical condition and reason for hospitalization, otherwise oriented and cooperative. He is safe to d/c home from a mobility standpoint. No further skilled PT indicated at this time. Frequency of Treatment Frequency Of Treatment Discharge Recommendations To Nursing Amount of Assist Needed Standby Assistance Discharge Recommendations PT Discharge Recommendations Home with Assistance Transportation Needs at Discharge Private Vehicle
--- NOTE | 2023-04-12 13:02 | PC.NURSE ---
Day shift: Pt left unit at approx 1300. Paperwork signed and all questions answered. Pt's Daughter in room for teachings. MD scripts sent electronic to Pts pharmacy by MD. Pt has all personal belongings. Pt stated 'I'm rally glad to be going home now. Cleared by PT/OT and per them Pt is at baseline. Pt did ambulate in halls with PT and steady on his feet.
== END 2023-04-12 13:06 | disposition home or self-care (01) ==
LOC: ED 13:15 → AC 15:07
PROVIDERS: Admitting Provider Student in an Organized Health Care Education/Training Program; Emergency Provider Emergency Medicine; PCP Student in an Organized Health Care Education/Training Program; Referring Provider Emergency Medicine; Visit Provider Student in an Organized Health Care Education/Training Program
DX: R41.0 Disorientation, unspecified (principal); N39.0 Urinary tract infection, site not specified; B96.89 Other specified bacterial agents as the cause of diseases classified elsewhere; R29.701 NIHSS score 1; I25.10 Atherosclerotic heart disease of native coronary artery without angina pectoris; N40.0 Benign prostatic hyperplasia without lower urinary tract symptoms; E11.9 Type 2 diabetes mellitus without complications; K21.9 Gastro-esophageal reflux disease without esophagitis; G89.29 Other chronic pain; M54.9 Dorsalgia, unspecified; E78.5 Hyperlipidemia, unspecified; I10 Essential (primary) hypertension; I69.398 Other sequelae of cerebral infarction; H53.9 Unspecified visual disturbance; F17.210 Nicotine dependence, cigarettes, uncomplicated; Z79.84 Long term (current) use of oral hypoglycemic drugs
CPT/HCPCS: 36415; 70450; 70496; 70498; 70551; 71045; 80048; 80053; 80061; 81001; 82550; 82962; 83036; 83690; 83735; 84145; 84439; 84443; 84484; 85025; 85610; 85730; 87077; 87086; 87186; 93005; 93010; 93306; 96361; 96365; 96372; 96375; 97161; 97165; 97535; 99285; G0378; J0696; J1170; J1650

== ENCOUNTER 2023-04-21 14:26 | Emergency (ER) | payer MEDICARE, SELFPAY ==
[2023-04-11 16:11] VITALS: BMI 24.8
[2023-04-21] VITALS (20 sets, daily range): BP systolic 143–195; BP diastolic 95–124; PULSE 74–105; RESP 17–31; TEMP 37.1; O2SAT 94–99; BMI 25.9
--- NOTE | 2023-04-21 14:40 | DI.RAD.S_ITS ---
PROCEDURE: XR CHEST 1V INDICATIONS: chest pain TECHNIQUE: One view of the chest was acquired. COMPARISON: [facility], CR, XR CHEST 1V, 04/11/2023, 13:37. FINDINGS: Surgical changes and devices: None. Lungs and pleura: Lungs are clear. No pleural effusions or pneumothorax. Mediastinum: Mediastinal contours appear normal. Heart size is normal. Bones and chest wall: No suspicious bony lesions. Overlying soft tissues appear unremarkable. IMPRESSION: No acute cardiopulmonary abnormality. Dictated by: Mark Barrientos M.D. on 04/21/2023 at 14:13 Approved by: Mark Barrientos M.D. on 04/21/2023 at 14:13
[2023-04-21] MEDS: SODIUM CHLORIDE 0.9% 1,000 ML 1000 ML IV (15:04)
[2023-04-21] MEDS: ASPIRIN 81 MG CHEW TAB 324 MG PO (15:04)
[2023-04-21 15:24] LABS: Alanine Aminotransferase 18 IU/L (<50); Albumin 3.8 g/dL (3.5-5.0); Albumin Globulin Ratio 1.3 (1.0-2.8); Alkaline Phosphatase 121 U/L (38-126); Aspartate Aminotransferase 25 IU/L (17-59); BUN Creatinine Ratio 10.3 (6-22); Bilirubin Total 0.7 mg/dL (0.2-1.3); Blood Urea Nitrogen 8 mg/dL (9-20); Calcium 9.3 mg/dL (8.4-10.2); Carbon Dioxide 26 mmol/L (22-32); Chloride 104 mmol/L (98-107); Creatine Kinase 135 U/L (55-170); Estimated Glomerular Filt Rate > 60 mL/min (>60); Globulin 2.9 g/dL (1.7-4.1); Glucose 117 mg/dL (80-110); HEMOLYSIS 18 (0-50); Lipase 16 U/L (23-300); Potassium 3.8 mmol/L (3.4-5.1); Sodium 135 mmol/L (137-145); Total Protein 6.7 g/dL (6.3-8.2)
[2023-04-21 15:27] LABS: Add Manual Diff / Slide Review NO; Basophils Absolute Auto 100 /uL (0-100); Basophils Percent Auto 0.8 % (0-2); Eosinophils Absolute Auto 0 /uL (0-450); Eosinophils Percent Auto 0.1 % (2-4); Hemoglobin 15.3 g/dL (13.5-17.5); Lymphocytes Absolute Auto 1200 /uL (1100-4500); Lymphocytes Percent Auto 11.7 % (25-40); Mean Corpuscular HGB Conc 34.1 % (30-36); Mean Corpuscular Hemoglobin 29.2 PG (26-34); Mean Corpuscular Volume 85.8 fL (80-100); Monocytes Absolute Auto 600 /uL (0-900); Monocytes Percent Auto 5.6 % (3-14); Neutrophils Absolute Auto 8100 /uL (1500-7000); Neutrophils Percent Auto 81.8 % (50-75); Platelet Count 224 X10^3/uL (150-400); Red Blood Cell Count 5.25 X10^6/uL (4.5-5.9); Red Cell Distribution Width 14.9 % (11.6-14.8); White Blood Cell Count 9.9 X10^3/uL (4.5-11.0)
[2023-04-21 15:36] LABS: NT-proBNP (BNP-Adult 18+) 895 pg/mL (<125); Troponin I < 0.012 ng/mL (0.01-0.034)
[2023-04-21 15:41] LABS: Procalcitonin 0.04 ng/mL (<0.5)
[2023-04-21 16:12] LABS: RBC Urine 10-30/HPF (0-5/HPF); WBC Urine 1-5/HPF (0-5/HPF)
[2023-04-21 16:13] LABS: Amorphous Sediment Urine 1+; Bacteria Urine None Seen; Culture Indicated Urine Cult Not Indicated; Squamous Epithelial Cell Urine None Seen (0-5/HPF)
--- NOTE | 2023-04-21 16:20 | PC.NURSE ---
Collected stool sample at request of ROSALIE Stratton @0032
--- NOTE | 2023-04-21 16:39 | ED.ABDPAIN ---
HPI - Abdominal Pain General Chief Complaint: Abdominal Pain Stated Complaint: abd pain/ back pain/ postural vs Time Seen by Provider: 04/21/23 14:37 Source: patient and EMS Mode of arrival: EMS Limitations: no limitations History of Present Illness HPI narrative: This is a 72-year-old male history of coronary artery disease, who comes in with acute on chronic low back pain, patient states it wraps around his right side as well, he states pain does radiate down his legs he has had back issues in the past he states he had a fall about 10 days ago he is given a prescription for some pain medication he is unsure what it is called sounds like he may have completed this but has had persistent pain. He states sometimes he can be pain-free while seated but standing and movement think it significantly worse. He does note that seems to be little bit more on the right and wraps around. Patient does have a Causey catheter in place that was placed about a month ago by urology for urinary retention. States it has been changed out recently. He also notes that he is had some recent issues with constipation and bowel movements. Then developed some diarrhea. Patient denies any fevers or chills. He denies any shortness he had some chest the other patient states no nausea no vomiting, no black or bloody stools. He states some tingling down both legs, no new numbness. He has pain with movement of his legs but no new weakness. He is not had any loss of fecal control. Patient is unsure if he had any imaging of his back when he was here after his fall. He is not had any recurrent falls since then. He does note he is had prior cardiac stent, no prior back surgeries. Prior hip replacement. Patient states he does take an aspirin every day, he takes multiple medications he is unsure of all of them and states his daughter helps him keep track of them. No known drug allergies. States he does use tobacco every day, denies regular alcohol or illicit use. PCP is Duke Mclean. Related Data Home Medications Medication Instructions Recorded Confirmed amitriptyline 100 mg tablet 100 mg PO BEDTIME 04/11/23 04/11/23 apixaban 5 mg tablet (Eliquis) 5 mg PO DAILY 04/11/23 04/11/23 atorvastatin 40 mg tablet 40 mg PO DAILY 04/11/23 04/11/23 enalapril maleate 10 mg tablet 10 mg PO DAILY 04/11/23 04/11/23 finasteride 5 mg tablet 5 mg PO DAILY 04/11/23 04/11/23 omeprazole 20 mg capsule,delayed 20 mg PO DAILY 04/11/23 04/11/23 release tamsulosin 0.4 mg capsule 0.4 mg PO DAILY 04/11/23 04/11/23 tramadol 50 mg tablet 50 mg PO Q8HR PRN Pain (Scale 04/11/23 04/11/23 Score 1-3) Previous Rx's Medication Instructions Recorded aspirin 81 mg tablet,delayed 81 mg PO DAILY #30 tabs 04/12/23 release metformin 500 mg tablet 500 mg PO BID #30 tabs 04/12/23 metoprolol tartrate 25 mg tablet 25 mg PO BID #30 tabs 04/12/23 tramadol 50 mg tablet 50 mg PO Q6H PRN pain #20 tabs 04/21/23 Allergies Allergy/AdvReac Type Severity Reaction Status Date / Time No Known Drug Allergies Allergy Verified 04/11/23 13:16 Review of Systems Review of Systems ROS Unobtainable: All systems reviewed & are unremarkable except as noted in HPI and below Patient History Social History household members: none Smoking Status: Current every day smoker alcohol intake: current Smoking Status: Current every day smoker tobacco type: cigarettes alcohol intake frequency: 0-2 drinks per day Substance Use Type: does not use Exam Narrative Exam Narrative: GENERAL: Alert and oriented x three, obese male in mild distress. HEENT: Head normocephalic, atraumatic, EOMI, pupils reactive, face symmetric, moist mucous membranes NECK: Supple, full range of motion CARDIOVASCULAR: Regular rate and rhythm without murmurs, rubs or gallops. No JVD. No swelling bilateral lower extremities. RESPIRATORY: Breath sounds equal bilaterally, no wheezes rales or rhonchi. ABDOMEN: Soft, nontender. Nondistended. Normoactive bowel sounds all 4 quadrants. No guarding or rebound, rigidity, no mass : Right flank CVA tenderness, no left flank tenderness. BACK: No cervical, thoracic vertebral point tenderness. Patient does have some tenderness over the mid lumbar spine little bit more on the right less so on the left. No crepitus, no decreased movement. Patient has slightly decreased range of motion. Patient's gait is [antalgic/normal]. Rectal exam is deferred, patient has Causey catheter in place draining yellow urine.. Muscle strength is 5/5 in lower extremities, increased pain with right leg raise, DTRs are 2/4 and lower extremities. Dorsalis pedis and tibialis pulses are 2+ and lower extremities. Sensation is intact in the lower extremities. EXTREMITIES: Normal range of motion, no clubbing or edema. Neurovascularly intact NEUROLOGICAL: Cranial nerves II through XII grossly intact. Moving all extremities SKIN: Warm, dry, no petechiae, no rashes or lesions, no rash. No erythema. No vesicles. No ecchymosis or skin changes otherwise noted. Initial Vital Signs Initial Vital Signs: Vital Signs Temperature 98.8 F 04/21/23 14:39 Pulse Rate 105 H 04/21/23 14:39 Respiratory Rate 20 04/21/23 14:39 Blood Pressure 169/101 H 04/21/23 14:39 Pulse Oximetry 97 04/21/23 14:39 Oxygen Delivery Method Room Air 04/21/23 14:39 Course Orders Ordered: Discontinued Medications Aspirin (Aspirin 81 Mg Chew Tab) 324 mg PO NOW ONE Stop: 04/21/23 14:40 Last Admin: 04/21/23 15:04 Dose: 324 mg Documented By: CRISS Sodium Chloride (Normal Saline 0.9%) 1,000 mls @ 1,000 mls/hr IV BOLUS ONE Stop: 04/21/23 15:36 Last Infusion: 04/21/23 16:06 Dose: 0 mls/hr Documented By: Admin: 04/21/23 15:04 Dose: 1,000 mls/hr Documented By: CRISS Ketorolac Tromethamine (Ketorolac 30 Mg/Ml Vial) 15 mg IV NOW ONE Stop: 04/21/23 17:04 Last Admin: 04/21/23 17:47 Dose: 15 mg Documented By: CRISS Tramadol HCl (Tramadol 50 Mg Prepack) 1 bottle MISC SEEINSTR ONE Stop: 04/21/23 18:37 Last Admin: 04/21/23 19:01 Dose: 1 bottle Documented By: CRISS Vital Signs Vital signs: Vital Signs - 8 hr 04/21/23 14:39 04/21/23 15:12 04/21/23 15:15 Temperature 98.8 F Pulse Rate 105 H 92 H Respiratory Rate 20 20 Blood Pressure 169/101 H 159/107 H Pulse Oximetry 97 96 Oxygen Delivery Method Room Air 04/21/23 15:15 04/21/23 15:30 04/21/23 15:30 Temperature Pulse Rate 91 H 91 H Respiratory Rate 22 22 Blood Pressure 143/97 H Pulse Oximetry 94 95 Oxygen Delivery Method 04/21/23 15:45 04/21/23 15:45 04/21/23 16:00 Temperature Pulse Rate 84 Respiratory Rate 19 Blood Pressure 163/95 H 158/95 H Pulse Oximetry 95 Oxygen Delivery Method 04/21/23 16:00 04/21/23 16:15 04/21/23 16:30 Temperature Pulse Rate 91 H 87 84 Respiratory Rate 31 H 19 20 Blood Pressure Pulse Oximetry 94 Oxygen Delivery Method 04/21/23 16:40 04/21/23 16:40 04/21/23 16:45 Temperature Pulse Rate 90 84 Respiratory Rate 20 21 Blood Pressure 195/99 H Pulse Oximetry 97 96 Oxygen Delivery Method 04/21/23 17:00 04/21/23 17:00 04/21/23 17:30 Temperature Pulse Rate 92 H 79 Respiratory Rate 22 17 Blood Pressure 171/124 H Pulse Oximetry 97 97 Oxygen Delivery Method 04/21/23 17:31 04/21/23 17:31 04/21/23 17:45 Temperature Pulse Rate 78 77 Respiratory Rate 22 24 Blood Pressure 188/107 H Pulse Oximetry 99 95 Oxygen Delivery Method 04/21/23 18:00 04/21/23 18:15 04/21/23 18:30 Temperature Pulse Rate 74 76 85 Respiratory Rate Blood Pressure Pulse Oximetry 95 96 98 Oxygen Delivery Method 04/21/23 18:45 Temperature Pulse Rate 88 Respiratory Rate Blood Pressure Pulse Oximetry 98 Oxygen Delivery Method MDM - Abdominal Pain Lab Data 04/21/23 14:55 04/21/23 14:55 Labs: Lab Results 04/21/23 04/21/23 04/21/23 Range/Units 14:55 14:55 14:55 WBC 9.9 (4.5-11.0) X10^3/uL RBC 5.25 (4.5-5.9) X10^6/uL Hgb 15.3 (13.5-17.5) g/dL Hct 45.0 (41-53) % MCV 85.8 (80-100) fL MCH 29.2 (26-34) PG MCHC 34.1 (30-36) % RDW 14.9 H (11.6-14.8) % Plt Count 224 (150-400) X10^3/uL Neut % (Auto) 81.8 H (50-75) % Lymph % (Auto) 11.7 L (25-40) % [place] % (Auto) 5.6 (3-14) % Eos % (Auto) 0.1 L (2-4) % Baso % (Auto) 0.8 (0-2) % Neut # (Auto) 8100 H (8494-2363) /uL Lymph # (Auto) 1200 (2824-7189) /uL [place] # (Auto) 600 (0-900) /uL Eos # (Auto) 0 (0-450) /uL Baso # (Auto) 100 (0-100) /uL Sodium 135 L (137-145) mmol/L Potassium 3.8 (3.4-5.1) mmol/L Chloride 104 (98-107) mmol/L Carbon Dioxide 26 (22-32) mmol/L BUN 8 L (9-20) mg/dL Creatinine 0.78 (0.66-1.25) mg/dL Estimated GFR > 60 (>60) mL/min BUN/Creatinine Ratio 10.3 (6-22) Glucose 117 H (80-110) mg/dL Lactate (0.7-2.1) mmol/L Calcium 9.3 (8.4-10.2) mg/dL Total Bilirubin 0.7 (0.2-1.3) mg/dL AST 25 (17-59) IU/L ALT 18 (<50) IU/L Alkaline Phosphatase 121 (38-126) U/L Total Creatine Kinase 135 (55-170) U/L Troponin I < 0.012 (0.01-0.034) ng/mL NT-Pro-B Natriuret Pep 895 H (<125) pg/mL Total Protein 6.7 (6.3-8.2) g/dL Albumin 3.8 (3.5-5.0) g/dL Globulin 2.9 (1.7-4.1) g/dL Albumin/Globulin Ratio 1.3 (1.0-2.8) Lipase 16 L (23-300) U/L Procalcitonin (<0.5) ng/mL Urine RBC (0-5/HPF) Urine WBC (0-5/HPF) Ur Squamous Epith Cells (0-5/HPF) Amorphous Sediment Urine Bacteria (None) Ur Culture Indicated? Stl C. cayetanensis PCR (Not Detect) Stool Rotavirus (PCR) (Not Detect) Stool Adenovirus (PCR) (Not Detect) Stool Astrovirus (PCR) (Not Detect) Stool Cryptosporidium PCR (Not Detect) Stl E.coli Shiga Tox PCR (Not Detect) St Sh/Enteroin Ecoli PCR (Not Detect) Stool E coli O157 PCR Stl Enterotoxigenic E PCR (Not Detect) Stool EPEC (PCR) (Not Detect) Stl E. histolytica PCR (Not Detect) Stool Giardia Lamblia PCR (Not Detect) Stool Sapovirus (PCR) (Not Detect) Stl P. shigelloides PCR (Not Detect) St Y.enterocolitica PCR (Not Detect) Stool Vibrio (PCR) (Not Detect) Stl Vibrio cholerae PCR (Not Detect) Stl Enteroaggr Ecoli PCR (Not Detect) Stl Norovirus GI/GII PCR (Not Detect) Campylobacter (PCR) (Not Detect) C. difficile Tox (PCR) (Not Detect) Salmonella (PCR) (Not Detect) 04/21/23 04/21/23 04/21/23 Range/Units 14:55 14:55 15:31 WBC (4.5-11.0) X10^3/uL RBC (4.5-5.9) X10^6/uL Hgb (13.5-17.5) g/dL Hct (41-53) % MCV (80-100) fL MCH (26-34) PG MCHC (30-36) % RDW (11.6-14.8) % Plt Count (150-400) X10^3/uL Neut % (Auto) (50-75) % Lymph % (Auto) (25-40) % [place] % (Auto) (3-14) % Eos % (Auto) (2-4) % Baso % (Auto) (0-2) % Neut # (Auto) (4210-0318) /uL Lymph # (Auto) (3716-4200) /uL [place] # (Auto) (0-900) /uL Eos # (Auto) (0-450) /uL Baso # (Auto) (0-100) /uL Sodium (137-145) mmol/L Potassium (3.4-5.1) mmol/L Chloride (98-107) mmol/L Carbon Dioxide (22-32) mmol/L BUN (9-20) mg/dL Creatinine (0.66-1.25) mg/dL Estimated GFR (>60) mL/min BUN/Creatinine Ratio (6-22) Glucose (80-110) mg/dL Lactate 1.0 (0.7-2.1) mmol/L Calcium (8.4-10.2) mg/dL Total Bilirubin (0.2-1.3) mg/dL AST (17-59) IU/L ALT (<50) IU/L Alkaline Phosphatase (38-126) U/L Total Creatine Kinase (55-170) U/L Troponin I (0.01-0.034) ng/mL NT-Pro-B Natriuret Pep (<125) pg/mL Total Protein (6.3-8.2) g/dL Albumin (3.5-5.0) g/dL Globulin (1.7-4.1) g/dL Albumin/Globulin Ratio (1.0-2.8) Lipase (23-300) U/L Procalcitonin 0.04 (<0.5) ng/mL Urine RBC 10-30/hpf H (0-5/HPF) Urine WBC 1-5/hpf (0-5/HPF) Ur Squamous Epith Cells None seen (0-5/HPF) Amorphous Sediment 1+ Urine Bacteria None seen (None) Ur Culture Indicated? Cult not indicated Stl C. cayetanensis PCR (Not Detect) Stool Rotavirus (PCR) (Not Detect) Stool Adenovirus (PCR) (Not Detect) Stool Astrovirus (PCR) (Not Detect) Stool Cryptosporidium PCR (Not Detect) Stl E.coli Shiga Tox PCR (Not Detect) St Sh/Enteroin Ecoli PCR (Not Detect) Stool E coli O157 PCR Stl Enterotoxigenic E PCR (Not Detect) Stool EPEC (PCR) (Not Detect) Stl E. histolytica PCR (Not Detect) Stool Giardia Lamblia PCR (Not Detect) Stool Sapovirus (PCR) (Not Detect) Stl P. shigelloides PCR (Not Detect) St Y.enterocolitica PCR (Not Detect) Stool Vibrio (PCR) (Not Detect) Stl Vibrio cholerae PCR (Not Detect) Stl Enteroaggr Ecoli PCR (Not Detect) Stl Norovirus GI/GII PCR (Not Detect) Campylobacter (PCR) (Not Detect) C. difficile Tox (PCR) (Not Detect) Salmonella (PCR) (Not Detect) 04/21/23 Range/Units 16:12 WBC (4.5-11.0) X10^3/uL RBC (4.5-5.9) X10^6/uL Hgb (13.5-17.5) g/dL Hct (41-53) % MCV (80-100) fL MCH (26-34) PG MCHC (30-36) % RDW (11.6-14.8) % Plt Count (150-400) X10^3/uL Neut % (Auto) (50-75) % Lymph % (Auto) (25-40) % [place] % (Auto) (3-14) % Eos % (Auto) (2-4) % Baso % (Auto) (0-2) % Neut # (Auto) (0865-2280) /uL Lymph # (Auto) (6175-5114) /uL [place] # (Auto) (0-900) /uL Eos # (Auto) (0-450) /uL Baso # (Auto) (0-100) /uL Sodium (137-145) mmol/L Potassium (3.4-5.1) mmol/L Chloride (98-107) mmol/L Carbon Dioxide (22-32) mmol/L BUN (9-20) mg/dL Creatinine (0.66-1.25) mg/dL Estimated GFR (>60) mL/min BUN/Creatinine Ratio (6-22) Glucose (80-110) mg/dL Lactate (0.7-2.1) mmol/L Calcium (8.4-10.2) mg/dL Total Bilirubin (0.2-1.3) mg/dL AST (17-59) IU/L ALT (<50) IU/L Alkaline Phosphatase (38-126) U/L Total Creatine Kinase (55-170) U/L Troponin I (0.01-0.034) ng/mL NT-Pro-B Natriuret Pep (<125) pg/mL Total Protein (6.3-8.2) g/dL Albumin (3.5-5.0) g/dL Globulin (1.7-4.1) g/dL Albumin/Globulin Ratio (1.0-2.8) Lipase (23-300) U/L Procalcitonin (<0.5) ng/mL Urine RBC (0-5/HPF) Urine WBC (0-5/HPF) Ur Squamous Epith Cells (0-5/HPF) Amorphous Sediment Urine Bacteria (None) Ur Culture Indicated? Stl C. cayetanensis PCR Not detected (Not Detect) Stool Rotavirus (PCR) Not detected (Not Detect) Stool Adenovirus (PCR) Not detected (Not Detect) Stool Astrovirus (PCR) Not detected (Not Detect) Stool Cryptosporidium PCR Not detected (Not Detect) Stl E.coli Shiga Tox PCR Not detected (Not Detect) St Sh/Enteroin Ecoli PCR Not detected (Not Detect) Stool E coli O157 PCR Not Reportable Stl Enterotoxigenic E PCR Not detected (Not Detect) Stool EPEC (PCR) Not detected (Not Detect) Stl E. histolytica PCR Not detected (Not Detect) Stool Giardia Lamblia PCR Not detected (Not Detect) Stool Sapovirus (PCR) Not detected (Not Detect) Stl P. shigelloides PCR Not detected (Not Detect) St Y.enterocolitica PCR Not detected (Not Detect) Stool Vibrio (PCR) Not detected (Not Detect) Stl Vibrio cholerae PCR Not detected (Not Detect) Stl Enteroaggr Ecoli PCR Not detected (Not Detect) Stl Norovirus GI/GII PCR Not detected (Not Detect) Campylobacter (PCR) Not detected (Not Detect) C. difficile Tox (PCR) Not detected (Not Detect) Salmonella (PCR) Not detected (Not Detect) Point of care testing: Urine Dip Bedside Urine Glucose Negative Bedside Urine Bilirubin - Negative Bedside Urine Ketone +/- 5 Urine Specific [place] 1.000 Bedside Urine Occult Blood +++ Bedside Urine pH 8.5 Bedside Urine Protein - Negative Bedside Urine Urobilinogen - Negative Bedside Urine Nitrite - Negative Bedside Urine Leukocytes - Negative Esterase Imaging Data CT scan - abdomen/pelvis: Radiologist's Impression: [address] [address] [address] Scan Report Signed Patient: Miah Pope MR#: [id number] : 1950 Acct:[id number] Age/Sex: 72 / M Date of Service: 04/21/23 Loc: ED Accession Number: [id number] ?? Procedure: CT abdomen pelvis w con Ordering Provider: Lizette Calixto D.O. PROCEDURE:? CT ABDOMEN PELVIS W CON ? INDICATIONS:? back pain, had fall, also has indwelling causey ? TECHNIQUE:? After the administration of intravenous contrast, axial sections acquired from the lung bases to the pubic symphysis.? Coronal and sagittal reformats were performed.? For radiation dose reduction, the following was used:? automated exposure control, adjustment of mA and/or kV according to patient size.? ? COMPARISON:? None. ? FINDINGS:? Image quality:? Excellent.? ? Lung bases:? Bibasilar atelectasis. Heart:? Normal size.? Coronary arteries have atherosclerotic calcifications. ? ABDOMEN: Liver:? The liver has no mass or intrahepatic biliary ductal dilatation. Gallbladder:? The gallbladder has no gallstones, pericholecystic fluid, gallbladder wall thickening, or surrounding inflammatory change. Biliary ducts: No extrahepatic biliary ductal dilatation. Pancreas:? The pancreas has no mass or ductal dilatation. There is no peripancreatic inflammation. Spleen:? Normal size with no mass. Adrenal Glands:? The right adrenal gland is normal.? The left adrenal gland appears thickened, with multiple low-density nodules, likely adrenal adenomas. Kidneys and Ureters:? The right kidney has a 1.5 cm cyst.? No solid mass.? No hydronephrosis. ? Stomach and Bowel:? Stomach, small bowel loops, and colon are unremarkable.? Peritoneum:? No abnormal intraperitoneal fluid.? No free air.? ? Ventral Wall: ? No hernias.? Abdominal Nodes:? No retroperitoneal or mesenteric adenopathy by size criteria.? Vessels:? The aorta has atherosclerosis with no aneurysmal dilatation. ? PELVIS: Pelvic Organs:? Unremarkable.? ? Bladder:? The bladder is decompressed with a Causey. Pelvic Nodes: No enlarged lymph nodes.? Miscellaneous: No hernias are seen. ? ? ? Bones:? Vertebral body height loss of L1 consistent with compression fracture of indeterminate age. ? IMPRESSION:? 1. No acute abdominal or pelvic abnormality. 2. Vertebral body height loss of L1 consistent with compression fracture of indeterminate age.? 3. Multiple low-density nodules of the left adrenal gland are indeterminate.? Recommend outpatient adrenal protocol CT.? ? Dictated by: Mark Barrientos M.D. on 04/21/2023 at 16:51 ? ? Approved by: Mark Barrientos M.D. on 04/21/2023 at 17:00?? Chest x-ray: Radiologist's Impression: Close Chest X-Ray (Signed) Mark Barrientos - 04/21/23 Echocardiogram Ultrasound (Signed) Erik Jane - 04/11/23 Brain MRI (Signed) Milli Ahuja - 04/11/23 Telemetry Strips 04/11/23 Chest X-Ray (Signed) Jose Fisher - 04/11/23 Head/Neck CTA (Signed) Jose Fisher - 04/11/[address] (Signed) Luis Gavin - 04/11/23 Lumbar Spine X-Ray (Signed) Jorge Hansen - 04/10/[address] (Signed) Luis Gavin - 04/10/23 Hand X-Ray (Signed) Jorge Hansen - 04/10/23 Chest X-Ray (Signed) Bucky Mallory - 03/03/23 Telemetry Strips 03/03/23 Chest X-Ray (Signed) Milli Ahuja - 02/21/23 Launch?[address] [address] XRay Report Signed Patient: Miah Pope MR#: [id number] : 1950 Acct:[id number] Age/Sex: 72 / M Date of Service: 04/21/23 Loc: ED Accession Number: [id number] ?? Procedure: XR chest 1V Ordering Provider: Natalie Street P.A-C PROCEDURE:? XR CHEST 1V ? INDICATIONS:? chest pain ? TECHNIQUE:? One view of the chest was acquired.? ? COMPARISON:? [facility], CR, XR CHEST 1V, 04/11/2023, 13:37. ? FINDINGS:? ? Surgical changes and devices:? None.? ? Lungs and pleura:? Lungs are clear.? No pleural effusions or pneumothorax.? ? Mediastinum:? Mediastinal contours appear normal.? Heart size is normal.? ? Bones and chest wall:? No suspicious bony lesions.? Overlying soft tissues appear unremarkable.? ? IMPRESSION:? No acute cardiopulmonary abnormality. ? ? ? Dictated by: Mark Barrientos M.D. on 04/21/2023 at 14:13 ? ? Approved by: Mark Barrientos M.D. on 04/21/2023 at 14:13?? ECG Data Attestation: I personally reviewed and interpreted this ECG as follows: Prior ECG tracings: available for review Interpretation: Sinus rhythm with first-degree AV block, rate 80 9p are 214 QRS of 112 QTC of 467. No acute ST elevation depression appreciated. Patient has prior from 04/11/2023 no acute changes appreciated. MDM Narrative Medical decision making narrative: This is a 72-year-old male with acute on chronic back pain increased after a fall about 10 days ago patient has sounds like he was discharged home with some pain medication he had lumbar films at that time. Patient does have some lower lumbar pain sounds like radiates down both legs worse with movement and standing, he does have little bit of flank pain on examination as well as indwelling Causey catheter which shows some hematuria but no obvious signs of infection, CBC is negative coags show an INR 1 point consistent with patient's anticoagulation, renal function electrolytes are negative, lactate LFTs negative BNP is 895, troponins negative. Patient does not appear to be any acute heart failure, patient had some chest pain several days ago and troponin is negative. Was noted patient had an echo on 04/11/2023 with an EF of 40% severe hypokinesis.Chest x-ray was negative. Discussed with patient with his recent fall and persistent pain CT abdomen pelvis will allow for visualization of lumbar spine as well as kidneys and abdominal/:. Patient did have GI panel sent which is negative. CT imaging shows L1 compression fracture, atherosclerotic calcification of the coronary arteries, left adrenal nodule has multiple low-density nodules likely adrenal adenomas right renal cyst. Patient's bladder decompressed with Causey catheter no other acute change. Reviewed findings with patient he had a dose of Toradol here in the department he is feeling much improved. Suspect he has a new issue L1 compression fracture from his fall. Reviewed adrenal nodules need for follow-up, pain management and referral to orthopedic surgery. All questions answered also reviewed return precautions. Patient expresses understanding. Patient was a little unclear about what he had been taking for pain management he indicated something similar to aspirin he has had a prescription in March for tramadol but indicated this might have been what he was taking that was helpful so we have prescription again for this. Discharge Plan Departure Patient Disposition: Home Clinical Impression: Closed compression fracture of lumbar vertebra, Fall, Adrenal nodule Instructions: Vertebral Compression Fracture Activity Restrictions/Additional Instructions: Follow-up with your physician for recheck. Your imaging does show an L1 compression fracture this is typically treated with time and pain medication but some individuals will have intervention. Referral for Orthopedic surgery is included if you are having persistent symptoms. Please call to set up an appointment. It also noted that you have nodules on your left adrenal gland, these are likely adenomas but recommended to have follow-up adrenal protocol CT as an outpatient. Talk with your physician about having this ordered. Continue your home medications as prescribed. You may take Tylenol up to a 1000 mg every 6 hours. You may take oxycodone 1 tablet every 6 hours as needed. This medication can make you sleepy do not drive, perform hazardous activities or make any major decisions while taking it. This medication will make you constipated please take a stool softener once to twice daily until stools are soft and regular. Prescription sent to [facility] in [place]. Please return for worsening symptoms, new weakness, numbness, loss of sensation, new loss of bowel control, numbness of your groin, rapidly worsening symptoms or other new or concerning changes. Prescriptions: New tramadol 50 mg tablet 50 mg PO Q6H PRN (Reason: pain) Qty: 20 0RF No Action enalapril maleate 10 mg tablet 10 mg PO DAILY omeprazole 20 mg capsule,delayed release(DR/EC) 20 mg PO DAILY Patient Comments: TAKE 1 CAPSULE BY MOUTH DAILY amitriptyline 100 mg tablet 100 mg PO BEDTIME Patient Comments: TAKE 1 TABLET BY MOUTH EVERY NIGHT AT BEDTIME finasteride 5 mg tablet 5 mg PO DAILY tamsulosin 0.4 mg capsule 0.4 mg PO DAILY atorvastatin 40 mg tablet 40 mg PO DAILY Eliquis 5 mg tablet 5 mg PO DAILY tramadol 50 mg tablet 50 mg PO Q8HR PRN (Reason: Pain (Scale Score 1-3)) aspirin 81 mg Tablet,Delayed Release (Dr/Ec) 81 mg PO DAILY Qty: 30 0RF metformin 500 mg tablet 500 mg PO BID Qty: 30 0RF Patient Comments: HAS NOT STARTED YET 04/11/23 metoprolol tartrate 25 mg tablet 25 mg PO BID Qty: 30 0RF Referrals: Duke Mclean PA-C [Primary Care Provider] - Cyndie Edmond MD [Physician] - Stand Alone Forms: Patient Portal/API
--- NOTE | 2023-04-21 17:03 | DI.CT.S_ITS ---
PROCEDURE: CT ABDOMEN PELVIS W CON INDICATIONS: back pain, had fall, also has indwelling causey TECHNIQUE: After the administration of intravenous contrast, axial sections acquired from the lung bases to the pubic symphysis. Coronal and sagittal reformats were performed. For radiation dose reduction, the following was used: automated exposure control, adjustment of mA and/or kV according to patient size. COMPARISON: None. FINDINGS: Image quality: Excellent. Lung bases: Bibasilar atelectasis. Heart: Normal size. Coronary arteries have atherosclerotic calcifications. ABDOMEN: Liver: The liver has no mass or intrahepatic biliary ductal dilatation. Gallbladder: The gallbladder has no gallstones, pericholecystic fluid, gallbladder wall thickening, or surrounding inflammatory change. Biliary ducts: No extrahepatic biliary ductal dilatation. Pancreas: The pancreas has no mass or ductal dilatation. There is no peripancreatic inflammation. Spleen: Normal size with no mass. Adrenal Glands: The right adrenal gland is normal. The left adrenal gland appears thickened, with multiple low-density nodules, likely adrenal adenomas. Kidneys and Ureters: The right kidney has a 1.5 cm cyst. No solid mass. No hydronephrosis. Stomach and Bowel: Stomach, small bowel loops, and colon are unremarkable. Peritoneum: No abnormal intraperitoneal fluid. No free air. Ventral Wall: No hernias. Abdominal Nodes: No retroperitoneal or mesenteric adenopathy by size criteria. Vessels: The aorta has atherosclerosis with no aneurysmal dilatation. PELVIS: Pelvic Organs: Unremarkable. Bladder: The bladder is decompressed with a Causey. Pelvic Nodes: No enlarged lymph nodes. Miscellaneous: No hernias are seen. Bones: Vertebral body height loss of L1 consistent with compression fracture of indeterminate age. IMPRESSION: 1. No acute abdominal or pelvic abnormality. 2. Vertebral body height loss of L1 consistent with compression fracture of indeterminate age. 3. Multiple low-density nodules of the left adrenal gland are indeterminate. Recommend outpatient adrenal protocol CT. Dictated by: Mark Barrientos M.D. on 04/21/2023 at 16:51 Approved by: Mark Barrientos M.D. on 04/21/2023 at 17:00
[2023-04-21 17:47] LABS: Adenovirus F 40/41 Not Detected (Not Detect); Astrovirus Not Detected (Not Detect); Campylobacter Not Detected (Not Detect); Clostridium difficile toxin AB Not Detected (Not Detect); Cryptosporidium Not Detected (Not Detect); Cyclospora cayetanensis Not Detected (Not Detect); Entamoeba histolytica Not Detected (Not Detect); Enteroaggregative E.coli Not Detected (Not Detect); Enteropathogenic E.coli Not Detected (Not Detect); Enterotoxigenic E.coli It/st Not Detected (Not Detect); Giardia lamblia Not Detected (Not Detect); Norovirus GI/GII Not Detected (Not Detect); Plesiomonsa shigelloides Not Detected (Not Detect); Rotavirus A Not Detected (Not Detect); Salmonella Not Detected (Not Detect); Sapovirus Not Detected (Not Detect); Shiga-like toxin-prod E.coli Not Detected (Not Detect); Shigella/Enteroinvasive E.coli Not Detected (Not Detect); Vibrio Not Detected (Not Detect); Vibrio cholerae Not Detected (Not Detect); Yersinia enterocolitica Not Detected (Not Detect)
[2023-04-21] MEDS: KETOROLAC 30 MG/ML VIAL 15 MG IV (17:47)
[2023-04-21] MEDS: TRAMADOL 50 MG PREPACK 1 BOTTLE MISC (19:01)
== END 2023-04-21 19:15 | disposition home or self-care (01) ==
PROVIDERS: Student in an Organized Health Care Education/Training Program; Emergency Provider Emergency Medicine; PCP Student in an Organized Health Care Education/Training Program
DX: S32.019A Unspecified fracture of first lumbar vertebra, initial encounter for closed fracture (principal); E27.8 Other specified disorders of adrenal gland; R07.9 Chest pain, unspecified; R10.9 Unspecified abdominal pain; Z79.01 Long term (current) use of anticoagulants; W18.30XA Fall on same level, unspecified, initial encounter
CPT/HCPCS: 36415; 71045; 74177; 80053; 81003; 81015; 82550; 83605; 83690; 83880; 84145; 84484; 85025; 87040; 87507; 93005; 96361; 96374; 99285; J1885; Q9967